=== PATIENT | male | born 1960 ===

== ENCOUNTER 2017-04-08 12:40 | Inpatient (IN) ==
[2017-04-08 15:18] LABS: Basophils % 0.2 % (0.0-0.8); Eosinophils # 0.1 10*3/uL (0.0-0.87); Eosinophils % 0.3 % (0.00-10.9); Hematocrit 24.6 VOL% (42.0-52.0); Hemoglobin 9.3 GM/DL (14.0-18.0); Immature Granulocytes % 1.8 %; Immature Granulocytes Absolute 0.32 #; Lymphocytes # 2.2 10*3/uL (1.4-4.0); Lymphocytes % 11.9 % (21.2-54.2); Mean Corpuscular HGB Conc 37.8 GM/DL (32-36); Mean Corpuscular Hemoglobin 33 PG (27-34); Mean Corpuscular Volume 86.3 FL (87-102); Mean Platelet Volume 11.6 FL (9.6-12.0); Monocytes % 10.9 % (1.7-12.7); Neutrophils # 13.7 10*3/uL (1.4-7.4); Neutrophils % 74.9 % (38.7-73.9); Platelet Count 130 T/CUMM (130-400); Red Blood Count 2.85 MC/CUMM (3.8-5.5); Red Cell Distribution Width 13.7 % (9.3-17.3); White Blood Count 18.3 T/CUMM (4-12)
[2017-04-08 15:49] LABS: Albumin 1.8 G/DL (3.4-5.0); Bilirubin,Total 5.9 MG/DL (0.2-1.0); Osmolality,Calculated 258.5 MOS/KG (273-304); Potassium 3.3 MMOL/L (3.5-5.1); Total Protein 5.3 G/DL (6.4-8.3)
--- NOTE | 2017-04-08 16:38 | Hospitalist History & Physical ---
Assessment and Plan - Time spent with patient Time spent with patient: Greater than 30 minutes (1) Diabetes Status: Chronic Assessment and plan: Accu-cheks ACHS. Sliding scale insulin per protocol. Current Visit: No (2) Hypertension Status: Chronic Assessment and plan: Continue home meds. Current Visit: No History of Present Illness Chief complaint: jaundice, cholecystitis History of present illness: Mr. Abdi is a 56 year old [place] male with a past medical history significant for hypertension and diabetes mellitus who presents to the ED as a transfer from [facility] for further evaluation of shortness of cholecystitis. Patient reports that he did have abdominal pain on arrival to the [facility] ED, however administration of pain is, the pain has resolved. Patient's lab work is negative for any acute hepatic injury. On exam , he has a negative Garcia sign, he denies abdominal pain, nausea/vomiting. He does have bilateral lower extremity edema. After discussion Dr. Roman, the patient will be admitted for further evaluation with a GI consult for possible ERCP we will also obtain a hepatic profile. Patient is a full code. His home meds have been reviewed and reconciled. Home Medications Medication Instructions Recorded Confirmed Type Aspirin EC Tab 81 mg PO DAILY 09/13/15 04/08/17 History Gabapentin Cap/Tab [Neurontin 200 mg PO BEDTIME 09/13/15 04/08/17 History Cap/Tab] Lisinopril [Prinivil] 10 mg PO DAILY 09/13/15 04/08/17 History Glimepiride 2 mg PO DAILY 07/23/16 04/08/17 History Metformin HCl [Metformin HCl ER] 1,000 mg PO BID 07/23/16 04/08/17 History Calcium (Carbonate) [Caltrate 600] 600 mg PO BID 04/08/17 04/08/17 History Cyclobenzaprine [Flexeril] 10 mg PO BID PRN 04/08/17 04/08/17 History Mineral Oil/Petrolatum,White 3.5 gm BOTH EYES BEDTIME PRN 04/08/17 04/08/17 History [Artificial Tears Eye Ointment] Moxifloxacin 0.5% Oph Soln 1 drop RIGHT EYE Q4H 04/08/17 04/08/17 History [Vigamox 0.5% Oph Soln] Propylene Glycol [Systane Balance] 1 drop BOTH EYES QID PRN 04/08/17 04/08/17 History Simvastatin [Simvastatin] 20 mg PO BEDTIME 04/08/17 04/08/17 History Allergies Allergy/AdvReac Type Severity Reaction Status Date / Time cefoperazone Allergy RASH Verified 09/13/15 10:48 Medical,Surgical,& Family Hx - Medical History Cardio: History of: Hypertension (medication) Neurology: No history of: Seizures HEENT: History of: Ear Problem (glasses) Endocrine: History of: Diabetes Mellitus (NIDDM) Musculoskeletal: History of: Back/Neck Problems (had back surgery) Hematology: History of: Blood Transfusion Reaction (3 months ago) Other: No history of: Anesthesia Reactions - Surgical History Cardiac Surgeries: Patient Denies: Cardiac Catheterization Abdominal Surgeries: Surgical HX of: Abdominal Surgery (spleenectomy, pancreatic pseudocyst), Colonoscopy, EGD Orthopedic Surgeries: Surgical HX of;: Orthopedic Surgery (back surgery, right shoulder) - Family History Family History: Reports;: Family Cancer (colon (mother)) - Social History Smoking Status: Unknown if ever smoked Frequency of Alcohol Use: None Type of Drug Use: None Marital Status: Single Lives With:: Alone Functional capacity: independent ambulation 12 point system: reviewed and no additional remarkable complaints except as stated Exam - Constitutional Vitals: Period Temp Pulse Resp BP Sys/Robbins Pulse Ox Last 24 Hr 98.2 F-98.2 F 69-81 11-20 87-111/54-73 100-100 Exam: General appearance: overweight, no acute distress - Head Head exam: Present: normocephalic, atraumatic - Eye Eye exam: Present: EOMI. Absent: conjunctival injection, nystagmus Pupils: Present: RAMONA, normal accommodation - ENT ENT exam: Present: normal exam, normal external ear exam - Neck Neck exam: Present: normal inspection. Absent: lymphadenopathy, tenderness, thyromegaly - Respiratory Respiratory exam: Present: clear to auscultation bilaterally. Absent: rales, rhonchi, wheezes - Cardiovascular Cardiovascular exam: Present: regular rate and rhythm. Absent: carotid bruit, gallop, rubs - GI/Abdominal GI/Abdominal exam: Present: normal bowel sounds. Absent: ascites, distended, mass - Extremities Exam Extremities exam: Present: normal inspection, normal capillary refill. Absent: edema - Back Exam Back exam: Absent: CVA tenderness (L), CVA tenderness (R) - Neurological Exam Neurological exam: Present: alert, oriented X3, CN II-XII intact, reflexes normal - Psychiatric Psychiatric exam: Present: normal affect, normal mood - Skin Skin exam: Present: normal color, warm, dry Results - Labs CBC & BMP: 04/08/17 15:10 04/08/17 15:10 Lab Results: I have reviewed the past 24 hour labs - Impressions In addition to assessment and plan, my impressions are as follows: 1. cholangitis vs. cholecystitis -Consult GI for possible ERCP. IV fluids -Obtain hepatitis profile
[2017-04-08] MEDS ORDERED: DEXTROSE 50% 25 GM/50 ML VIAL IV PRN (17:59)
[2017-04-08] MEDS ORDERED: ONDANSETRON 4 MG/2 ML VIAL IV PRN (17:59)
[2017-04-08] MEDS ORDERED: DOCUSATE SODIUM 100 MG CAPSULE PO PRN (17:59)
[2017-04-08] MEDS ORDERED: GLUCAGON 1 MG VIAL IM PRN (17:59)
[2017-04-08] MEDS ORDERED: LACTULOSE 20 GM/30 ML UDCUP PO PRN (17:59)
[2017-04-08] MEDS ORDERED: ACETAMINOPHEN 325 MG TABLET PO PRN (17:59)
[2017-04-08] MEDS ORDERED: CYCLOBENZAPRINE 10 MG TABLET PO PRN (18:04)
[2017-04-08] MEDS: MOXIFLOXACIN 0.5% OPH SOLN 3 ML BOTTLE RIGHT EYE SCH ×2 (19:05→22:38)
[2017-04-08 19:15] LABS: Hepatitis A Ab IgM Quant 0.07 Index; Hepatitis A Ab IgM Result Negative (Negative); Hepatitis B Core IgM Quant 0.13 Index; Hepatitis B Core IgM Result Negative (Negative); Hepatitis B Surface Ag Quant < 0.10 Index; Hepatitis B Surface Ag Result Negative (Negative); Hepatitis C Virus Ab Quant 0.16 Index; Hepatitis C Virus Ab Result Negative (Negative)
[2017-04-08] MEDS: INSULIN LISPRO 100 UNIT/ML SUBCUT SCH (22:30)
[2017-04-08] MEDS: SIMVASTATIN 20 MG TABLET PO SCH (22:38)
[2017-04-08] MEDS: GABAPENTIN 100 MG CAPSULE PO SCH (22:38)
[2017-04-09] MEDS: MOXIFLOXACIN 0.5% OPH SOLN 3 ML BOTTLE RIGHT EYE SCH ×6 (02:39→22:14)
[2017-04-09 06:35] LABS: Basophils % 0.2 % (0.0-0.8); Eosinophils # 0.1 10*3/uL (0.0-0.87); Eosinophils % 0.8 % (0.00-10.9); Hematocrit 21.5 VOL% (42.0-52.0); Immature Granulocytes % 1.4 %; Immature Granulocytes Absolute 0.18 #; Lymphocytes # 1.5 10*3/uL (1.4-4.0); Lymphocytes % 11.6 % (21.2-54.2); Mean Corpuscular HGB Conc 37.2 GM/DL (32-36); Mean Corpuscular Hemoglobin 32 PG (27-34); Mean Platelet Volume 11.8 FL (9.6-12.0); Monocytes # 1.7 10*3/uL (0.11-0.8); Monocytes % 12.9 % (1.7-12.7); Neutrophils # 9.4 10*3/uL (1.4-7.4); Neutrophils % 73.1 % (38.7-73.9); Platelet Count 131 T/CUMM (130-400); Red Cell Distribution Width 13.9 % (9.3-17.3); White Blood Count 12.9 T/CUMM (4-12)
[2017-04-09 07:07] LABS: Calcium 6.9 MG/DL (8.5-10.1)
[2017-04-09] MEDS: PANTOPRAZOLE 40 MG TABLET PO SCH (08:54)
[2017-04-09] MEDS: ASPIRIN EC 81 MG TABLET PO SCH (08:54)
[2017-04-09] MEDS: GLIMEPIRIDE 2 MG TABLET PO SCH (08:54)
[2017-04-09] MEDS: LISINOPRIL 10 MG TABLET PO SCH (08:54)
[2017-04-09] MEDS: INSULIN LISPRO 100 UNIT/ML SUBCUT SCH ×4 (08:54→21:00)
--- NOTE | 2017-04-09 09:10 | Gastrointestinal Consult Note ---
<Bianca Garcia - Last Filed: 04/09/17 09:08> Assessment and Plan (1) Jaundice Status: Acute Assessment and plan: 04/09-Onset of jaundice, unknown when, with findings of elevated LFTS, bilirubin at PCP appt. Hx of pancreatic psuedocyst, spleenectomy. 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 CT of abdomen w/o contrast findings noted as below. Obtain abdominal US today. Plan and addendum to follow by Dr Garcia. Current Visit: Yes History of Present Illness Chief complaint: Jaundice, History of present illness: Mr. Abdi is a 56 year old male who was admitted to the hospital from [facility] after reporting to the clinic for complaints of dizziness and not feeling well for several days. Pt has a history of HTN, DM, pancreatitis in the past. He has a surgical history of spleenectomy and pancreatic pseudocyst (pancreaectomy in 2007) in the past which pt is unable to recall details regarding this. He has a history of heavy alcohol use for several years however states that he has decreased his intake over the last two months with his last drink being two weeks ago. Pt states that over the last several days he has had some dizziness and generally not feeling well. He presented to the clinic and was found to be hypotensive. He had a CT of abdomen w/o contrast as well at that time and was found to have some diffuse gallbladder wall thickening and mild pericholecystic edema, suspicious for acute cholecystitis, diffuse hepatic steatosis , trace ascites, and acute colitis with mild circumferential wall thickening of the mid and distal sigmoid colon. LFTs noted with bilirubin 7.0, AST 60, and alk phos 127. Pt was then transferred to our facility after these findings. He denies any abdominal pain, nausea or vomiting associated with this. He denies any recent weight loss, fever or chills. He states that he is not aware of elevated LFTS in the past. Pt was last seen at our facility in July of last year for anemia and constipation with colonoscopy with findings at that time of diverticulosis, redundant colon. He also had an EGD with findings of acute duodenal ulcer x 4 and positive for H. pylori. He was transfused at that time. He is also noted during this visit to have a drop in his HH from admission at to 05/13 in absence of overt bleeding at this time. Home Medications Medication Instructions Recorded Confirmed Type Aspirin EC Tab 81 mg PO DAILY 09/13/15 04/08/17 History Gabapentin Cap/Tab [Neurontin 200 mg PO BEDTIME 09/13/15 04/08/17 History Cap/Tab] Lisinopril [Prinivil] 10 mg PO DAILY 09/13/15 04/08/17 History Glimepiride 2 mg PO DAILY 07/23/16 04/08/17 History Metformin HCl [Metformin HCl ER] 500 mg PO BID 07/23/16 04/08/17 History Calcium (Carbonate) [Caltrate 600] 600 mg PO BID 04/08/17 04/08/17 History Allergies Allergy/AdvReac Type Severity Reaction Status Date / Time cefoperazone Allergy RASH Verified 09/13/15 10:48 Medical,Surgical,& Family Hx - Medical History Cardio: History of: Hypertension (medication) Psychological: No history of: Anxiety Disorders, ADHD, Behavior Problems, Bipolar Disorder, Depression, Previous Suicide Attempt, Psychiatric/Substance Abuse Tx, Schizophrenia, Violent Behavior, Psychiatric Problems Neurology: No history of: Seizures HEENT: History of: Eye Problem (wears glasses , didnt bring with him) No history of: Ear Problem Endocrine: History of: Diabetes Mellitus (NIDDM) Musculoskeletal: History of: Back/Neck Problems (had back surgery) Hematology: History of: Blood Transfusion Reaction (3 months ago) Other: No history of: Anesthesia Reactions - Surgical History Cardiac Surgeries: Patient Denies: Cardiac Catheterization Abdominal Surgeries: Surgical HX of: Abdominal Surgery (spleenectomy, pancreatic pseudocyst), Colonoscopy, EGD Orthopedic Surgeries: Surgical HX of;: Orthopedic Surgery (back surgery, right shoulder) - Family History Family History: Reports;: Family Cancer (colon (mother)) - Social History Smoking Status: Unknown if ever smoked Frequency of Alcohol Use: None Type of Drug Use: None 12 point system: reviewed and no additional remarkable complaints except as stated - Constitutional Constitutional: Present: as per HPI - EENT Eyes: Present: as per HPI Ears: Present: as per HPI Nose, mouth and throat: Present: as per HPI - Cardiovascular Cardiovascular: Present: as per HPI - Respiratory Respiratory: Present: as per HPI - Gastrointestinal Gastrointestinal: Present: as per HPI - Genitourinary Genitourinary: Present: as per HPI - Musculoskeletal Musculoskeletal: Present: as per HPI - Neurological Neurological: Present: as per HPI, dizziness - Psychiatric Psychiatric: Present: as per HPI - Endocrine Endocrine: Present: as per HPI - Hematologic/Lymphatic Hematologic/Lymphatic: Present: as per HPI Exam - Constitutional Vitals: Period Temp Pulse Resp BP Sys/Robbins Pulse Ox Last 24 Hr 97.8 F-98.5 F 69-113 11-20 87-113/44-76 97-100 General appearance: normal weight, no acute distress - Head Head exam: Present: normal inspection, normocephalic - Eye Eye exam: Present: other (lids and conjunctiva unremarkable). Absent: scleral icterus - ENT ENT exam: Present: normal exam, normal oropharynx - Neck Neck exam: Present: normal inspection - Respiratory Respiratory exam: Present: clear to auscultation bilaterally. Absent: rales, rhonchi, wheezes - Cardiovascular Cardiovascular exam: Present: regular rate and rhythm. Absent: diastolic murmur , JVD, systolic murmur - GI/Abdominal GI/Abdominal exam: Present: normal bowel sounds, soft. Absent: ascites, distended, mass, organomegaly, tenderness - Extremities Exam Extremities exam: Present: normal inspection, full ROM - Back Exam Back exam: Present: normal inspection - Neurological Exam Neurological exam: Present: alert, oriented X3 - Psychiatric Psychiatric exam: Present: normal affect, normal mood - Skin Skin exam: Present: normal color, warm, dry Results - Labs CBC & BMP: 04/09/17 06:20 04/09/17 06:20 Lab Results: I have reviewed the past 24 hour labs - Diagnostic Findings Procedure: CT Abdomen and Pelvis: report reviewed by me (outside facility, no contrast) <Karlos Garcia - Last Filed: 04/09/17 17:11> History of Present Illness Chief complaint: 3030 History of present illness: Mr. Abdi is a 56 year old male Exam - Constitutional Vitals: Period Temp Pulse Resp BP Sys/Robbins Pulse Ox Last 24 Hr 97.2 F-98.7 F 70-113 12-20 86-113/44-76 18-100 Results - Labs CBC & BMP: 04/09/17 06:20 04/09/17 06:20
[2017-04-09 09:27] LABS: Albumin 1.5 G/DL (3.4-5.0); Bilirubin,Direct 3.6 MG/DL (0.0-0.20); Bilirubin,Indirect 1.4 MG/DL (0.0-1.0); Total Protein 4.6 G/DL (6.4-8.3)
--- NOTE | 2017-04-09 09:34 | Hospitalist Progress Note ---
"Assessment and Plan (1) Jaundice Status: Acute Assessment and plan: GI consulted will follow their recs, hepatitis profile sent will follow Current Visit: Yes (2) Duodenal ulcer Status: Acute Assessment and plan: hx of DU in the past , treated with anbx and PPI, will contiune PPI, will monitor H|H Current Visit: No (3) Cholecystitis Status: Acute Assessment and plan: CT abd done in another facility is C|W with cholecystitis, will contiune iv antbx repeat US of abd and will do surgical consult Current Visit: Yes (4) Diabetes Status: Chronic Assessment and plan: contiune home meds and SSI Current Visit: No Hospitalist: Subjective Interval history: clinically stable mild upper abdominal pain , still jaundiced , schdeule for US of abd today Exam - Constitutional Vitals: Period Temp Pulse Resp BP Sys/Robbins Pulse Ox Last 24 Hr 97.8 F-98.7 F 69-113 11-20 86-113/44-76 18-100 heent, pearle neck, supple. chest clear. cvs, s1 s2. abd, soft, bs+, mild RUQ tendreness no rebound supply analyst, alert orientedx3 afocal Results - Labs CBC & BMP: 04/09/17 06:20 04/09/17 06:20"
[2017-04-09] MEDS: LEVOFLOXACIN INJ 500 MG in PREMIX 1 EACH IV SCH (10:29)
[2017-04-09] MEDS: SODIUM CHLOR 0.9% KCL 40 MEQ 40 MEQ/1,000 ML BAG IV SCH ×2 (10:29→22:17)
--- NOTE | 2017-04-09 11:38 | Ultrasound Report ---
History his elevated LFTs The liver is 16.0 cm in length. There is increased echogenicity of the liver with mild attenuation of the ultrasound beam The there is a mild distention of the gallbladder with gallbladder wall thickening measuring 4 mm in tiny amount of pericholecystic fluid. There is small amount of gallbladder sludge without shadowing stones No biliary ductal dilatation is seen Patient is status post splenectomy No renal hydronephrosis seen bilaterally Visualized aorta and IVC are normal in size Pancreas obscured by bowel gas Tiny amount of ascites present Impression: 1. Pancreas is obscured 2. Fatty infiltration of the liver 3. Gallbladder sludge with mild gallbladder distention and mild nonspecific gallbladder wall thickening which can simply be related to ascites. Clinical correlation as to any question of acalculous cholecystitis requested The Ultrasound images were captured and stored. PROCEDURE INTERPRETED AT [facility] DEPARTMENT OF RADIOLOGY Final Report Signed by: Dr. Rafaela Mo
--- NOTE | 2017-04-09 13:38 | General Surgery Consult Note ---
Assessment and Plan - Time spent with patient Time spent with patient: Greater than 30 minutes (1) Hypotension Status: Acute Assessment and plan: Mr. 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 CT scan of the abdomen and pelvis done at the [facility] report reads a diffuse gallbladder wall thickening and gallbladder sludge. Ultrasound of the abdomen showing the same. Patient has elevated total bilirubin of 5 with a normal lipase. Patient is completely asymptomatic for gallbladder disease. We are requesting the films for the CT scan done at the [facility] to be loaded into [employer] for Dr. Tavares to review. If we cannot get these films will have a repeat CT scan done in the morning. Agree with GI consult. Dr. Tavares has seen and examined patient and further recommendations to follow. Current Visit: Yes (2) Total bilirubin, elevated Status: Acute Current Visit: Yes (3) Diabetes Status: Chronic Current Visit: No (4) Jaundice Status: Acute Current Visit: Yes History of Present Illness Chief complaint: Dizziness History of present illness: Mr. Abdi is a 56 year old male with history of alcohol abuse, diabetes, hypertension, neuropathy, splenectomy and partial pancreatectomy for pancreatic pseudocyst admitted by the hospitalist service on 04/08/2017 as a transfer from [facility] with dizziness and abdominal pain. According to the records from the [facility] patient was complaining of abdominal pain upon arrival the patient denies this as of now. Patient states his only complaint is of dizziness. He was found to be hypotensive upon admission is received some IV fluids. Patient denies any abdominal pain, nausea, vomiting or diarrhea. Patient is hungry and he is wanting to eat though he is n.p.o. Patient denies headache, dysphasia, chest pain, shortness of breath, and lower extremity edema. CT report from [facility] shows diffuse gallbladder wall thickening with pericholecystic edema suspicious for acute cholecystitis, diffuse hepatic steatosis, trace ascites, and acute colitis. Ultrasound done here shows gallbladder sludge with mild gallbladder distention and wall thickening. Patient did have an elevated white count of 18 but this morning is down to 12.9. His bilirubin was also greater than 6 at the [facility] and is down to 5 today with a direct bilirubin of 3.6 and indirect bilirubin of 1.4. His AST is only mildly elevated at 58 with a normal ALT and alk phos. His lipase and amylase are normal. His hepatitis panel is negative. Patient states he was a big drinker and states he has not drank in 2 weeks. Upon exam he is nontender to deep palpation in the epigastric and right upper quadrant region and he is jaundice. Patient has very poor insight into his medical problems and he is a poor historian. GI has been consulted. Dr. Tavares was consulted to evaluate abnormal gallbladder on CT scan. Home Medications Medication Instructions Recorded Confirmed Type Aspirin EC Tab 81 mg PO DAILY 09/13/15 04/08/17 History Gabapentin Cap/Tab [Neurontin 200 mg PO BEDTIME 09/13/15 04/08/17 History Cap/Tab] Lisinopril [Prinivil] 10 mg PO DAILY 09/13/15 04/08/17 History Glimepiride 2 mg PO DAILY 07/23/16 04/08/17 History Metformin HCl [Metformin HCl ER] 500 mg PO BID 07/23/16 04/08/17 History Calcium (Carbonate) [Caltrate 600] 600 mg PO BID 04/08/17 04/08/17 History Allergies Allergy/AdvReac Type Severity Reaction Status Date / Time cefoperazone Allergy RASH Verified 09/13/15 10:48 Medical,Surgical,& Family Hx - Medical History Cardio: History of: Hypertension (medication) Psychological: No history of: Anxiety Disorders, ADHD, Behavior Problems, Bipolar Disorder, Depression, Previous Suicide Attempt, Psychiatric/Substance Abuse Tx, Schizophrenia, Violent Behavior, Psychiatric Problems Neurology: No history of: Seizures HEENT: History of: Eye Problem (wears glasses , didnt bring with him) No history of: Ear Problem Endocrine: History of: Diabetes Mellitus (NIDDM) Musculoskeletal: History of: Back/Neck Problems (had back surgery) Hematology: History of: Blood Transfusion Reaction (3 months ago) Other: No history of: Anesthesia Reactions - Surgical History Cardiac Surgeries: Patient Denies: Cardiac Catheterization Abdominal Surgeries: Surgical HX of: Abdominal Surgery (spleenectomy, pancreatic pseudocyst), Colonoscopy, EGD Orthopedic Surgeries: Surgical HX of;: Orthopedic Surgery (back surgery, right shoulder) - Family History Family History: Reports;: Family Cancer (colon (mother)) - Social History Smoking Status: Unknown if ever smoked Frequency of Alcohol Use: Frequently Type of Drug Use: None Functional capacity: independent ambulation Review of systems: A complete 10 system review of systems was obtained and pertinent positives and negatives per HPI Exam - Constitutional Vitals: Period Temp Pulse Resp BP Sys/Robbins Pulse Ox Last 24 Hr 97.2 F-98.7 F 69-113 11-20 86-113/44-76 18-100 Exam: Constitutional System: No distress. No tremulousness. Head: Normocephalic, atraumatic. Ears, Nose and Throat System: No evidence of Otitis or Mastoiditis. No epistaxis or discharge, Eyes System: Pupils equal, round, and reactive. Extraocular muscles intact. Sclera icteric Neck: Supple, without adenopathy, No jugular venous distention. No thyromegaly, neck mass, or prior surgery apparent. Respiratory System: Chest clear to auscultation. Cardiovascular System: Heart with regular rate and rhythm. No murmur. GI System: Abdomen soft, nontender. Normo active bowel sounds present. Musculoskeletal System: limbs with no pedal edema. Full distal pulses. Neurological System: No discernable sensory deficit. No aphasia Psychiatric System: Conversation is rational Results - Labs CBC & BMP: 04/09/17 06:20 04/09/17 06:20 Lab Results: I have reviewed the past 24 hour labs - Diagnostic Findings Procedure: CT Abdomen and Pelvis: report reviewed by me (CT scan of the abdomen and pelvis from [facility] shows diffuse gallbladder wall thickening and mild pericholecystic edema suspicious for acute cholecystitis, diffuse hepatic steatosis, trace ascites, acute colitis), Ultrasound: report reviewed by me ( Abdominal ultrasound shows fatty infiltration of the liver, gallbladder sludge with mild gallbladder distention and gallbladder wall thickening which can be related to ascites.)
[2017-04-09] MEDS: GABAPENTIN 100 MG CAPSULE PO SCH (21:17)
[2017-04-09] MEDS: SIMVASTATIN 20 MG TABLET PO SCH (21:17)
[2017-04-10] MEDS: MOXIFLOXACIN 0.5% OPH SOLN 3 ML BOTTLE RIGHT EYE SCH ×6 (02:34→22:25)
[2017-04-10 05:23] LABS: Basophils % 0.3 % (0.0-0.8); Eosinophils # 0.2 10*3/uL (0.0-0.87); Eosinophils % 1.4 % (0.00-10.9); Hematocrit 20.1 VOL% (42.0-52.0); Hemoglobin 7.3 GM/DL (14.0-18.0); Immature Granulocytes Absolute 0.22 #; Lymphocytes # 2.1 10*3/uL (1.4-4.0); Lymphocytes % 19.7 % (21.2-54.2); Mean Corpuscular HGB Conc 36.3 GM/DL (32-36); Mean Corpuscular Hemoglobin 32 PG (27-34); Mean Corpuscular Volume 88.5 FL (87-102); Monocytes # 1.5 10*3/uL (0.11-0.8); Monocytes % 14.1 % (1.7-12.7); Neutrophils # 6.7 10*3/uL (1.4-7.4); Neutrophils % 62.5 % (38.7-73.9); Platelet Count 138 T/CUMM (130-400); Red Blood Count 2.27 MC/CUMM (3.8-5.5); Red Cell Distribution Width 14.9 % (9.3-17.3); White Blood Count 10.8 T/CUMM (4-12)
[2017-04-10 05:51] LABS: Calcium 6.7 MG/DL (8.5-10.1); Osmolality,Calculated 271.7 MOS/KG (273-304); Potassium 3.6 MMOL/L (3.5-5.1)
[2017-04-10 05:54] LABS: Albumin 1.4 G/DL (3.4-5.0); Bilirubin,Total 4.5 MG/DL (0.2-1.0); Calcium 6.6 MG/DL (8.5-10.1); Osmolality,Calculated 269.8 MOS/KG (273-304); Potassium 3.8 MMOL/L (3.5-5.1); Total Protein 4.4 G/DL (6.4-8.3)
[2017-04-10 06:00] LABS: Eosinophils 1 % (0-10); Hypochromasia 1+; Lymphocytes 16 % (20-55); Segmented Neutrophils 72 % (50-85); Total Cells Counted 100
[2017-04-10 06:01] LABS: Acanthocytes Few; Platelet Estimate Adequate
[2017-04-10] MEDS: INSULIN LISPRO 100 UNIT/ML SUBCUT SCH ×4 (07:54→21:24)
[2017-04-10] MEDS: GLIMEPIRIDE 2 MG TABLET PO SCH (08:17)
[2017-04-10] MEDS: ASPIRIN EC 81 MG TABLET PO SCH (08:17)
[2017-04-10] MEDS: LISINOPRIL 10 MG TABLET PO SCH (08:18)
[2017-04-10] MEDS: PANTOPRAZOLE 40 MG TABLET PO SCH (08:18)
[2017-04-10] MEDS: LEVOFLOXACIN INJ 500 MG in PREMIX 1 EACH IV SCH (09:19)
--- NOTE | 2017-04-10 09:25 | EKG Report ---
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
[2017-04-10] MEDS ORDERED: SODIUM CHLORIDE 0.9% 250 ML IV PRN (09:44)
[2017-04-10 10:54] LABS: INR 3.5
[2017-04-10] MEDS ORDERED: PHYTONADIONE 10 MG/1 ML AMP SUBCUT ONE (12:08)
--- NOTE | 2017-04-10 12:08 | General Surgery Progress Note ---
Assessment and Plan (1) Jaundice Status: Acute Assessment and plan: Impression: Jaundice, probably related to cirrhosis and underlying liver dysfunction Plan: I reviewed the outside CT images and report. Gallbladder wall does not appear very thickened. The pericholecystic fluid is likely ascites. I suspect this is all related to underlying liver disease. Elevated INR today supports some intrinsic dysfunction of his liver. His abdomen is completely benign on exam. No plans for any surgical intervention at this time. Please call if needed. I discussed the case with Dr. Garcia. Current Visit: Yes Subjective Patient reports: Present: no new complaints Narrative: Patient continues to deny any abdominal pain Exam - Constitutional Vitals: Period Temp Pulse Resp BP Sys/Robbins Pulse Ox Last 24 Hr 97.9 F-98.4 F 73-108 12-20 93-108/57-65 95-100 General appearance: no acute distress - Head Head exam: Present: normocephalic - Neck Neck exam: Present: normal inspection - Respiratory Respiratory exam: Present: clear to auscultation bilaterally - Cardiovascular Cardiovascular exam: Present: RRR - GI/Abdominal GI/Abdominal exam: Present: soft (Nontender nondistended) - Back Exam Back exam: Present: normal inspection - Neurological Exam Neurological exam: Present: alert, oriented X3 Speech: Present: normal - Skin Skin exam: Present: normal color Results - Labs CBC & BMP: 04/10/17 04:50 04/10/17 04:50 Lab Results: I have reviewed the past 24 hour labs
--- NOTE | 2017-04-10 12:15 | Gastrointestinal Progress Note ---
<Bianca Garcia - Last Filed: 04/10/17 12:13> Assessment and Plan (1) Jaundice Status: Acute Assessment and plan: 04/10-ERCP rescheduled to tomorrow due to elevated INR. H&H noted to be down today. Transfuse 2 units of packed red blood cells. Give vitamin K 5 mg subcu and repeat lab work in the morning. Plan an addendum to follow Dr. Garcia 04/09-Onset of jaundice, unknown when, with findings of elevated LFTS, bilirubin at PCP appt. Hx of pancreatic psuedocyst, spleenectomy. 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 CT of abdomen w/o contrast findings noted as below. Obtain abdominal US today. Plan and addendum to follow by Dr Garcia. Current Visit: Yes Gastroenterology - PN: Subj Interval history: CC: Jaundice, anemia Patient is seen, awake and alert with family at bedside. He was scheduled for ERCP this morning however his INR was noted to be elevated today at 3.5. ERCP is to be postponed to tomorrow pending repeat lab work if INR is down at 1.8 or below. H&H this morning noted to be down at 04/11. 2 units of packed red blood cells are transfusion currently. Will give patient 5 mg of vitamin K and reevaluate tomorrow. Abdomen soft, nontender. ROS: Denies shortness of breath or chest pain Exam (Progress Note) - Constitutional Vitals: Period Temp Pulse Resp BP Sys/Robbins Pulse Ox Last 24 Hr 97.9 F-98.4 F 73-108 12-20 93-108/57-68 95-100 General appearance: normal weight, no acute distress - Head Head exam: Present: normal inspection, normocephalic - Eye Eye exam: Present: other (Lids and conjunctive are unremarkable). Absent: scleral icterus - ENT ENT exam: Present: normal exam, normal oropharynx - Neck Neck exam: Present: normal inspection - Respiratory Respiratory exam: Present: clear to auscultation bilaterally. Absent: rales, rhonchi, wheezes - Cardiovascular Cardiovascular exam: Present: regular rate and rhythm. Absent: diastolic murmur , JVD, systolic murmur - GI/Abdominal GI/Abdominal exam: Present: normal bowel sounds, soft. Absent: ascites, distended, mass, organomegaly, tenderness - Extremities Exam Extremities exam: Present: normal inspection, full ROM - Back Exam Back exam: Present: normal inspection - Neurological Exam Neurological exam: Present: alert, oriented X3 - Psychiatric Psychiatric exam: Present: normal affect, normal mood - Skin Skin exam: Present: normal color, warm, dry Results - Labs CBC & BMP: 04/10/17 04:50 04/10/17 04:50 Lab Results: I have reviewed the past 24 hour labs <Karlos Garcia - Last Filed: 04/10/17 17:29> Exam (Progress Note) - Constitutional Vitals: Period Temp Pulse Resp BP Sys/Robbins Pulse Ox Last 24 Hr 97.9 F-98.4 F 73-108 16-20 93-117/57-70 95-100 Results - Labs CBC & BMP: 04/10/17 04:50 04/10/17 04:50
--- NOTE | 2017-04-10 14:11 | Physician Query Form ---
CLICK EDIT DOCUMENT TO SELECT QUERY ANSWER --> OK --> SIGN Ashwini Dallas RN Clinical [employer] W) [phone] (f) [phone] [email or web address] PROVIDERS: Make your selection(s) from the choices in EACH section by typing an "x" and enter comments in the comment section. Please use your independent medical judgment in providing your response. This request does not imply that any particular answer is desired or expected. CLINICAL INDICATORS: (Providers should not edit this section) Based on documentation of serum creatinine of 1.6 down to 1.10. GFR from 58 up to 90. Had a ct scan of abdomen and pelvis at [facility]. Treated with NS with KCL infusion. Clarify which of the following most accurately represents the patient's renal status: (x ) Acute kidney injury (non-traumatic) ( ) Acute renal failure ( ) Acute renal failure with underlying Chronic Kidney Disease (CKD) - please provide stage below ( ) Acute renal failure with pathological renal lesion ( ) Acute renal failure with necrosis ( ) tubular ( ) medullary ( ) cortical ( ) CKD - please provide stage below ( ) End Stage Renal Disease ( ) Acute interstitial nephritis ( ) Hepatorenal syndrome ( ) Other, please specify: ( ) Clinically unable to determine Chronic Kidney Disease Stages Source: National Kidney Disease Foundation ( ) Stage I (eGFR > or = 90) ( ) Stage II (eGFR 60 - 89) ( ) Stage III (eGFR 30 - 59) ( ) Stage IV (eGFR 15 - 29) ( ) Stage V (eGFR < 15 or dialysis) COMMENTS: PLEASE ALSO DOCUMENT RESPONSE IN PROGRESS NOTES AND/OR DISCHARGE SUMMARY Use of terms such as suspected, likely, or probable (associated with a specific diagnosis that is being evaluated, monitored, or treated as if it exists) are acceptable and can be restated in the discharge summary if not ruled out. MTDD
--- NOTE | 2017-04-10 16:33 | Hospitalist Progress Note ---
Assessment and Plan (1) Diabetes Status: Chronic Current Visit: No (2) Duodenal ulcer Status: Acute Current Visit: No (3) Jaundice Status: Acute Current Visit: Yes (4) Cholecystitis Status: Acute Current Visit: Yes Hospitalist: Subjective Interval history: No acute events overnight. Patient denies abdominal pain. Plan is for ERCP today. Exam - Constitutional Vitals: Period Temp Pulse Resp BP Sys/Robbins Pulse Ox Last 24 Hr 97.9 F-98.4 F 73-108 16-20 93-108/57-70 95-100 General appearance: over weight - Head Head exam: Present: normocephalic, atraumatic - Eye Eye exam: Present: EOMI Pupils: Present: RAMONA - ENT ENT exam: Present: normal exam - Neck Neck exam: Present: normal inspection - Respiratory Respiratory exam: Present: clear to auscultation bilaterally - Cardiovascular Cardiovascular exam: Present: regular rate and rhythm - GI/Abdominal GI/Abdominal exam: Present: normal bowel sounds, soft. Absent: tenderness, rebound - Extremities Exam Extremities exam: Present: normal inspection - Back Exam Back exam: Present: normal inspection - Neurological Exam Neurological exam: Present: alert, oriented X3 - Psychiatric Psychiatric exam: Present: normal affect, normal mood - Skin Skin exam: Present: warm, intact Results - Labs CBC & BMP: 04/10/17 04:50 04/10/17 04:50
[2017-04-10 17:47] LABS: Hematocrit 32.1 VOL% (42.0-52.0)
[2017-04-10 17:48] LABS: Hemoglobin 11.3 GM/DL (14.0-18.0)
[2017-04-10] MEDS: SODIUM CHLOR 0.9% KCL 40 MEQ 40 MEQ/1,000 ML BAG IV SCH (21:10)
[2017-04-10] MEDS: GABAPENTIN 100 MG CAPSULE PO SCH (21:11)
[2017-04-10] MEDS: SIMVASTATIN 20 MG TABLET PO SCH (21:12)
[2017-04-11] MEDS: MOXIFLOXACIN 0.5% OPH SOLN 3 ML BOTTLE RIGHT EYE SCH ×6 (02:50→21:31)
[2017-04-11 06:57] LABS: Basophils # 0.1 10*3/uL (0.0-0.2); Basophils % 0.4 % (0.0-0.8); Eosinophils # 0.1 10*3/uL (0.0-0.87); Eosinophils % 0.7 % (0.00-10.9); Hematocrit 31.1 VOL% (42.0-52.0); Hemoglobin 11.4 GM/DL (14.0-18.0); Immature Granulocytes % 3.9 %; Lymphocytes # 1.9 10*3/uL (1.4-4.0); Lymphocytes % 12.6 % (21.2-54.2); Mean Corpuscular HGB Conc 36.7 GM/DL (32-36); Mean Corpuscular Hemoglobin 32 PG (27-34); Mean Corpuscular Volume 88.4 FL (87-102); Mean Platelet Volume 11.7 FL (9.6-12.0); Monocytes # 2.7 10*3/uL (0.11-0.8); Monocytes % 17.7 % (1.7-12.7); Neutrophils # 9.8 10*3/uL (1.4-7.4); Neutrophils % 64.7 % (38.7-73.9); Platelet Count 161 T/CUMM (130-400); Red Blood Count 3.52 MC/CUMM (3.8-5.5); Red Cell Distribution Width 15.5 % (9.3-17.3); White Blood Count 15.2 T/CUMM (4-12)
[2017-04-11 07:10] LABS: INR 1.9
[2017-04-11 07:12] LABS: PT Patient Result 21.3 SECS
[2017-04-11 07:23] LABS: Band Neutrophils 2 % (0-10); Eosinophils 1 % (0-10); Giant Platelets Few; Hypochromasia 1+; Lymphocytes 8 % (20-55); Platelet Estimate Normal; Segmented Neutrophils 80 % (50-85); Total Cells Counted 100
[2017-04-11 07:24] LABS: Calcium 7.3 MG/DL (8.5-10.1); Potassium 4.5 MMOL/L (3.5-5.1)
[2017-04-11] MEDS: INSULIN LISPRO 100 UNIT/ML SUBCUT SCH ×4 (07:43→20:12)
[2017-04-11] MEDS: ASPIRIN EC 81 MG TABLET PO SCH (08:18)
[2017-04-11] MEDS: GLIMEPIRIDE 2 MG TABLET PO SCH (08:18)
[2017-04-11] MEDS: LISINOPRIL 10 MG TABLET PO SCH (08:18)
[2017-04-11] MEDS: PANTOPRAZOLE 40 MG TABLET PO SCH (08:18)
[2017-04-11] MEDS: LEVOFLOXACIN INJ 500 MG in PREMIX 1 EACH IV SCH (08:30)
[2017-04-11] MEDS ORDERED: SUCCINYLCHOLINE 200 MG/10 ML VIAL ONE (10:50)
[2017-04-11] MEDS ORDERED: LIDOCAINE 2% 5 ML VIAL ONE (10:50)
[2017-04-11] MEDS ORDERED: ROCURONIUM 100 MG/10 ML VIAL IV ONE (10:50)
[2017-04-11] MEDS ORDERED: PROPOFOL 200 MG/20 ML VIAL IV ONE (10:50)
--- NOTE | 2017-04-11 11:10 | History and Physical Update ---
History and Physical Update - Physical Exam Mental Status: alert and oriented Heart: regular rate and rhythm Lung: clear to auscultation Abdomen: within normal limits Vitals: within normal limits
--- NOTE | 2017-04-11 11:12 | Operative Note ---
Date of procedure: 04/11/17 Pre-op diagnosis: Jaundice with biliary sludge Procedure: Endoscopic retrograde cholangiopancreatography 56-year-old male with jaundice sludge on ultrasound now for ERCP to further evaluate. Informed symptoms obtained the patient He was sedated with general anesthesia. Patient was placed prone position. The Olympus flexible duodenum scope was inserted blindly into the proximal esophagus. Findings esophagus no varices were seen stomach normal duodenum normal ampulla normal. A sphincterotome was utilized and a cholangiogram was obtained revealing no evidence of biliary ductal dilatation no filling defects were seen in the common bile duct common hepatic duct or intrahepatic ductal radicles. Cystic duct was patent no clear stones were seen in the gallbladder. We were unsuccessful in cannulating the pancreatic duct. The procedure terminated placed our procedure well his discharge recovery in good condition. Postop diagnosis: 1. Normal ERCP with no evidence of obstructive process to cause his jaundice. This likely represents ongoing hepatocellular injury from alcoholic hepatitis. Will proceed with liver biopsy in a.m. with interventional radiology to further evaluate. Anesthesia: MAC Surgeon / Physician: Karlos Garcia Estimated blood loss: none Specimens: none sent Condition: stable Disposition: post procedure unit Results - Labs CBC & BMP: 04/11/17 06:21 04/11/17 06:21 Discharge Plan - Discharge Medications No Action Lisinopril [Prinivil] 10 mg PO DAILY Gabapentin Cap/Tab [Neurontin Cap/Tab] 200 mg PO BEDTIME Aspirin EC Tab 81 mg PO DAILY Glimepiride 2 mg PO DAILY Metformin HCl [Metformin HCl ER] 500 mg PO BID Calcium (Carbonate) [Caltrate 600] 600 mg PO BID - Follow Up or Referral - Forms/Instructions
[2017-04-11] MEDS ORDERED: PHYTONADIONE 10 MG/1 ML AMP SUBCUT ONE (11:13)
--- NOTE | 2017-04-11 11:55 | Anesthesia Post-Op ---
Anesthesia Post OP - Post Ansesthetic Evaluation Patient seen in post op: Yes Resp: within normal limits CV: within normal limits Mental: within normal limits Temp: within normal limits Qmls-Lp-Dhenbrxkg: within normal limits Nausea and Vomiting: within normal limits Pain: within normal limits
[2017-04-11] MEDS ORDERED: KETAMINE 500 MG/10 ML VIAL ONE (12:16)
[2017-04-11] MEDS ORDERED: MIDAZOLAM 2 MG/2 ML VIAL ONE (12:17)
--- NOTE | 2017-04-11 12:32 | Fluoroscopy Report ---
FL ERCP Clinical Information: ERCP intraoperative fluoroscopy ^increased LFTs Total fluoroscopy time: 1 min 2 sec fluoro Operating physician: Jose Comparison: None Findings: ERCP images demonstrate endoscope within the stomach/duodenum and contrast opacification of the common bile duct, intrahepatic bile ducts and a widely patent cystic duct with contrast noted in the gallbladder. There are no filling defects identified. Images were evaluated and deemed appropriate by the operating physician at the time of the procedure. Impression: Intraoperative fluoroscopy as detailed above. PROCEDURE INTERPRETED AT [facility] DEPARTMENT OF RADIOLOGY Final Report Signed by: Lucas Aranda
--- NOTE | 2017-04-11 16:31 | Hospitalist Progress Note ---
Assessment and Plan (1) Jaundice due to hepatitis Status: Acute Assessment and plan: There is no obstructive pathology found on MRCP. Current Visit: Yes (2) Leukocytosis Status: Acute Assessment and plan: Possible occult infection patient have CT scan of the abdomen and pelvis Current Visit: Yes (3) Alcoholism Status: Acute Assessment and plan: Patient counseled regarding abstaining from alcohol overuse. Will talk to him again tomorrow. Current Visit: Yes Hospitalist: Subjective Interval history: Patient has been seen interviewed and examined and chart has been reviewed. Admitted to the hospital with painless jaundice. The gentleman has just come back from ERCP this afternoon. They see no obstructive pathology in the bile duct of the head of the pancreas. The suspicion at this point that he is jaundice is secondary to damage of the liver due to his overuse of alcohol. Talk to him but he is a half way on the sedation or talk to him again tomorrow. His [id number] is at the bedside. My emphasis today was that he needs to find a way of getting off alcohol. He sees nodding his head is a talk to him. Exam - Constitutional Vitals: Period Temp Pulse Resp BP Sys/Robbins Pulse Ox Last 24 Hr 96.7 F-98.5 F 70-106 16-20 100-124/60-075 94-100 General appearance: over weight - Head Head exam: Present: normocephalic, atraumatic, other (Jaundice of the eyes and skin noted) - Eye Eye exam: Present: EOMI, other (Electrolytes) Pupils: Present: RAMONA - Respiratory Respiratory exam: Present: clear to auscultation bilaterally - Cardiovascular Cardiovascular exam: Present: regular rate and rhythm - GI/Abdominal GI/Abdominal exam: Present: normal bowel sounds, soft - Extremities Exam Extremities exam: Present: full ROM - Neurological Exam Neurological exam: Present: alert, oriented X3, CN II-XII intact, other ( Slightly sedated) - Skin Skin exam: Present: warm, dry, other (Jaundice) Results - Labs CBC & BMP: 04/11/17 06:21 04/11/17 06:21 Lab Results: I have reviewed the past 24 hour labs (CMP and magnesium in the morning and CBC; I noted a waxing and waning white count I am afraid it may be an infection that is causing this problem)
[2017-04-11] MEDS: SODIUM CHLOR 0.9% KCL 40 MEQ 40 MEQ/1,000 ML BAG IV SCH (16:45)
--- NOTE | 2017-04-11 17:19 | Inventional Radiology Consult ---
Assessment and Plan - Time spent with patient Time spent with patient: Less than 30 minutes (1) Jaundice due to hepatitis Problem details: ECRP negative - no obstruction Status: Acute Assessment and plan: will get biopsy for histo evaluation of liver disease Current Visit: Yes IR Consult - Data of Consult Patient: new to practice Consult date: 04/11/17 Requesting Physician: Karlos Garcia - Consult Narrative Reason for consult: elevated bilirubin and normal ERCP History of present illness: Jin is a 56 year old M Admitted with jaundice. ERCP was negative. Liver biopsy is requested for elevated bilirubin. Long history of alcohol abuse. - Home Medications and Allergies Home Medications: Home Medications Medication Instructions Recorded Confirmed Type Aspirin EC Tab 81 mg PO DAILY 09/13/15 04/08/17 History Gabapentin Cap/Tab [Neurontin 200 mg PO BEDTIME 09/13/15 04/08/17 History Cap/Tab] Lisinopril [Prinivil] 10 mg PO DAILY 09/13/15 04/08/17 History Glimepiride 2 mg PO DAILY 07/23/16 04/08/17 History Metformin HCl [Metformin HCl ER] 500 mg PO BID 07/23/16 04/08/17 History Calcium (Carbonate) [Caltrate 600] 600 mg PO BID 04/08/17 04/08/17 History Allergies/Adverse Reactions: Allergies Allergy/AdvReac Type Severity Reaction Status Date / Time cefoperazone Allergy RASH Verified 09/13/15 10:48 12 point system: reviewed and no additional remarkable complaints except as stated Medical,Surgical,& Family Hx - Medical History Cardio: History of: Hypertension (medication) Psychological: No history of: Anxiety Disorders, ADHD, Behavior Problems, Bipolar Disorder, Depression, Previous Suicide Attempt, Psychiatric/Substance Abuse Tx, Schizophrenia, Violent Behavior, Psychiatric Problems Neurology: No history of: Seizures HEENT: History of: Eye Problem (wears glasses , didnt bring with him) No history of: Ear Problem Endocrine: History of: Diabetes Mellitus (NIDDM) Musculoskeletal: History of: Back/Neck Problems (had back surgery) Hematology: History of: Blood Transfusion Reaction (3 months ago) Other: No history of: Anesthesia Reactions - Surgical History Cardiac Surgeries: Patient Denies: Cardiac Catheterization Abdominal Surgeries: Surgical HX of: Abdominal Surgery (spleenectomy, pancreatic pseudocyst), Colonoscopy, EGD Orthopedic Surgeries: Surgical HX of;: Orthopedic Surgery (back surgery, right shoulder) - Family History Family History: Reports;: Family Cancer (colon (mother)) - Social History Smoking Status: Current every day smoker Frequency of Alcohol Use: Frequently Type of Drug Use: None Exam - Labs CBC & BMP: 04/11/17 06:21 04/11/17 06:21 Lab Results: I have reviewed the past 24 hour labs Labs: INR 1.9 04/11/17 06:21 Image Studies: ERCP and u/s reviewed - Constitutional Vitals: Period Temp Pulse Resp BP Sys/Robbins Pulse Ox Last 24 Hr 96.7 F-98.5 F 70-106 16-20 100-124/60-075 94-100 General appearance: over weight - Eye Eye exam: Present: EOMI, scleral icterus - Respiratory Respiratory exam: Present: clear to auscultation bilaterally - Cardiovascular Cardiovascular exam: Present: regular rate and rhythm - GI/Abdominal GI/Abdominal exam: Present: soft, other (protuberant abdomen - no fluid wave). Absent: guarding, tenderness, rebound - Neurological Exam Neurological exam: Present: alert, oriented X3 - Psychiatric Psychiatric exam: Present: normal affect, normal mood - Skin Skin exam: Present: normal color, dry
--- NOTE | 2017-04-11 19:24 | CT Report ---
CT of the abdomen and pelvis with intravenous and oral contrast. Indication: Painless jaundice. Leukocytosis. Comparison: Previous CT of the abdomen and pelvis at [facility], dated April 08, 2017. The patient had an ERCP earlier today. The heart is normal in size. There is atelectasis present at the left lung base. There is a moderate left pleural effusion. There is severe fatty infiltration of the liver. There is contrast material within the gallbladder, probably from the earlier ERCP. The liver length is 22 cm. There is no intrahepatic biliary ductal dilatation. No focal liver masses can be seen. The borders of the liver are smooth. The spleen has been removed. The pancreas is very atrophic. It contains calcifications. The pancreatic duct is not dilated. There is no adrenal enlargement. The kidneys are normal in size, location, and contour. They excrete normally. The urinary bladder presents a normal appearance. The gastric contour is normal. The loops of small intestine are not dilated. There is some distal small intestinal wall thickening. Contrast material does not meet the colon during the time of the exam. The appendix presents a normal appearance. There is no evidence of colonic obstruction. There is mild uniform colonic wall thickening. The urinary bladder presents a normal appearance. The prostate gland is not enlarged. There are multiple ventral abdominal wall hernias which contain only fat. Ascites is present, moderate in amount, all along the paracolic gutter areas and within the pelvis. In the right lower quadrant, there is a rim calcified fatty area which probably represents fat necrosis. No free air is seen. The abdominal aorta is of normal caliber with moderate plaque in its wall. Degenerative changes are noted within the spinal column. Impression: 1. Basilar atelectasis. 2. Small pleural effusion. 3. Moderate ascites. 4. Enlarged severely fatty liver. 5. Contrast material from the earlier ERCP within the gallbladder and extrahepatic ducts, not dilated. 6. Findings of chronic pancreatitis, with calcifications present and very little pancreatic tissue. 7. Status post splenectomy. 8. Distal loops of small intestine demonstrate mild uniform wall thickening. The colon demonstrates mild uniform wall thickening. This could be due to enteritis or could be secondary to the ascites. 9. Within the right lower quadrant, there is a rounded area of calcification with fat centrally which probably represents an area of fat necrosis. 10. Multiple ventral abdominal wall hernias containing only fat. The CT exam was performed using one or more of the following dose reduction techniques: Automated exposure control, adjustment of the mA and/or kV according to patient size, or use of iterative reconstruction technique. PROCEDURE INTERPRETED AT [facility] DEPARTMENT OF RADIOLOGY Final Report Signed by: Dr. Rosalind Mo
[2017-04-11] MEDS: SIMVASTATIN 20 MG TABLET PO SCH (20:08)
[2017-04-11] MEDS: GABAPENTIN 100 MG CAPSULE PO SCH (20:08)
[2017-04-12] MEDS: MOXIFLOXACIN 0.5% OPH SOLN 3 ML BOTTLE RIGHT EYE SCH ×7 (01:42→21:31)
[2017-04-12 06:09] LABS: Basophils # 0.1 10*3/uL (0.0-0.2); Basophils % 0.3 % (0.0-0.8); Eosinophils # 0.1 10*3/uL (0.0-0.87); Eosinophils % 0.7 % (0.00-10.9); Hematocrit 31.5 VOL% (42.0-52.0); Immature Granulocytes % 2.5 %; Immature Granulocytes Absolute 0.45 #; Lymphocytes # 3.4 10*3/uL (1.4-4.0); Lymphocytes % 19.2 % (21.2-54.2); Mean Corpuscular HGB Conc 34.9 GM/DL (32-36); Mean Corpuscular Hemoglobin 31 PG (27-34); Mean Corpuscular Volume 89.7 FL (87-102); Mean Platelet Volume 11.7 FL (9.6-12.0); Monocytes # 2.4 10*3/uL (0.11-0.8); Monocytes % 13.8 % (1.7-12.7); Neutrophils # 11.2 10*3/uL (1.4-7.4); Neutrophils % 63.5 % (38.7-73.9); Platelet Count 161 T/CUMM (130-400); Red Blood Count 3.51 MC/CUMM (3.8-5.5); Red Cell Distribution Width 15.7 % (9.3-17.3); White Blood Count 17.7 T/CUMM (4-12)
[2017-04-12] MEDS: SODIUM CHLOR 0.9% KCL 40 MEQ 40 MEQ/1,000 ML BAG IV SCH (06:31)
[2017-04-12 06:42] LABS: Albumin 1.5 G/DL (3.4-5.0); Bilirubin,Total 11.5 MG/DL (0.2-1.0); Calcium 7.4 MG/DL (8.5-10.1); Magnesium 1.2 MG/DL (1.8-2.4); Osmolality,Calculated 270.7 MOS/KG (273-304); Potassium 4.7 MMOL/L (3.5-5.1)
[2017-04-12] MEDS ORDERED: DIAZEPAM 5 MG TABLET PO ONE (08:33)
--- NOTE | 2017-04-12 08:51 | Gastrointestinal Progress Note ---
<Bianca Garcia - Last Filed: 04/12/17 08:48> Assessment and Plan (1) Jaundice Status: Acute Assessment and plan: 04/12-ERCP results noted. Patient for liver biopsy later today. Elevation in bilirubin 4.5-11.5 today. Afebrile WBCs noted 17,000. Plan an addendum to follow Dr. Garcia. 04/10-ERCP rescheduled to tomorrow due to elevated INR. H&H noted to be down today. Transfuse 2 units of packed red blood cells. Give vitamin K 5 mg subcu and repeat lab work in the morning. Plan an addendum to follow Dr. Garcia 04/09-Onset of jaundice, unknown when, with findings of elevated LFTS, bilirubin at PCP appt. Hx of pancreatic psuedocyst, spleenectomy. Hx of half-way heavy alcohol use. CT of abdomen w/o contrast findings noted as below. Obtain abdominal US today. Plan and addendum to follow by Dr Garcia. Current Visit: Yes Gastroenterology - PN: Subj Interval history: CC: Jaundice Patient is seen, awake and alert however states he is not feeling well today. He is noted to be somewhat lethargic but he is oriented. ERCP on yesterday noted to show no evidence of obstructive process. Dr. Aranda has consulted with patient and he is for liver biopsy today. Patient is noted to have an increase in his bilirubin from 4.5-11.5 today. Patient states he is having some mild abdominal discomfort this morning. Denies any nausea or vomiting. WBCs mildly elevated as well at 17,000. Abdomen soft, nontender. ROS: Denies shortness breath or chest pain Exam (Progress Note) - Constitutional Vitals: Period Temp Pulse Resp BP Sys/Robbins Pulse Ox Last 24 Hr 96.7 F-98.1 F 70-106 16-19 93-124/61-075 94-100 General appearance: normal weight, no acute distress - Head Head exam: Present: normal inspection, normocephalic - Eye Eye exam: Present: scleral icterus, other (Lids and conjunctivae are unremarkable) - ENT ENT exam: Present: normal exam - Neck Neck exam: Present: normal inspection - Respiratory Respiratory exam: Present: clear to auscultation bilaterally. Absent: rales, rhonchi, wheezes - Cardiovascular Cardiovascular exam: Present: regular rate and rhythm. Absent: diastolic murmur , JVD, systolic murmur - GI/Abdominal GI/Abdominal exam: Present: normal bowel sounds, tenderness (Mild), soft. Absent: ascites, distended, mass, organomegaly - Extremities Exam Extremities exam: Present: normal inspection, full ROM - Back Exam Back exam: Present: normal inspection - Neurological Exam Neurological exam: Present: alert, oriented X3 - Psychiatric Psychiatric exam: Present: normal affect, normal mood - Skin Skin exam: Present: normal color, warm, dry Results - Labs CBC & BMP: 04/12/17 04:45 04/12/17 04:45 Lab Results: I have reviewed the past 24 hour labs <Karlos Garcia - Last Filed: 04/12/17 10:10> Exam (Progress Note) - Constitutional Vitals: Period Temp Pulse Resp BP Sys/Robbins Pulse Ox Last 24 Hr 96.7 F-98.1 F 70-106 16-19 93-124/61-83 94-100 Results - Labs CBC & BMP: 04/12/17 04:45 04/12/17 04:45
[2017-04-12] MEDS: INSULIN LISPRO 100 UNIT/ML SUBCUT SCH ×4 (09:34→20:18)
[2017-04-12] MEDS: ASPIRIN EC 81 MG TABLET PO SCH (09:34)
[2017-04-12] MEDS: GLIMEPIRIDE 2 MG TABLET PO SCH (09:34)
[2017-04-12] MEDS: LISINOPRIL 10 MG TABLET PO SCH (09:34)
[2017-04-12] MEDS: PANTOPRAZOLE 40 MG TABLET PO SCH (09:35)
[2017-04-12] MEDS: LEVOFLOXACIN INJ 500 MG in PREMIX 1 EACH IV SCH (10:27)
--- NOTE | 2017-04-12 11:26 | Post Interventional Procedure ---
Pre-op diagnosis: jaundice Post-op diagnosis: same Procedure: liver biopsy Contrast: none Flouroscopy: none Radiologist: Lucas Aranda Anesthesia: local Specimens: other (three 20 ga core samples sent) Estimated blood loss: none Complications: none Condition: stable Description/Findings: right lobe random liver biopsy done with u/s guidance and patient tolerated well Assessment and Plan - Time spent with patient Time spent with patient: Less than 30 minutes (1) Jaundice due to hepatitis Problem details: ECRP negative - no obstruction Status: Acute Assessment and plan: will get biopsy for histo evaluation of liver disease 04/12: biopsy done - noted on u/s at the time of biopsy was GB dilatation and wall thickening and sludge - increased from prior u/s and maybe due to interval ERCP and transient biliary dyskinesia or spasm - would suggest continued close follow up and repeat u/s in 24-48 if bili continues to trend up Current Visit: Yes
--- NOTE | 2017-04-12 11:32 | Ultrasound Report ---
Ultrasound-guided liver biopsy Clinical history: History of alcoholic liver disease, needs staging. Physician: Dr. Aranda. Procedure: Informed consent was obtained prior to the procedure. A formal timeout was performed. Maximum sterile barrier technique was used. The right lobe of the liver was examined with ultrasound and no focal hepatic lesions are identified. Therefore, a random biopsy was performed. The right upper quadrant was prepped and draped in a sterile fashion. Under sonographic guidance, a coaxial guide needle was advanced into the right lobe of the liver. A captured sonographic image documents the needle position within the liver. Multiple 20-gauge core biopsies were then obtained. The needle was removed and final ultrasound images showed no significant hematoma. Scant hemorrhage is noted along the biopsy tract within the liver parenchyma, as expected. Minimal perihepatic ascites is also noted in the procedure. There is moderate distention of the gallbladder with internal sludge and wall thickening, which appears slightly increased from the prior diagnostic ultrasound dated 04/09/2017. The patient tolerated the procedure well and left the procedure area in stable condition. Complications: None. Estimated blood loss: Less than 5 mL. Impression: Technically successful ultrasound guided random liver biopsy. Apparent interval increase in gallbladder distention/wall thickening with sludge noted. PROCEDURE INTERPRETED AT [facility] DEPARTMENT OF RADIOLOGY Final Report Signed by: Lucas Aranda
--- NOTE | 2017-04-12 14:57 | Hospitalist Progress Note ---
Assessment and Plan (1) Diabetes Status: Chronic Assessment and plan: SSI Current Visit: No (2) Duodenal ulcer Status: Acute Current Visit: No (3) Jaundice Status: Acute Current Visit: Yes (4) Total bilirubin, elevated Status: Acute Assessment and plan: Increased to 12 from 4 since admission GI assisting Liver biopsy today Current Visit: Yes (5) Jaundice due to hepatitis Problem details: ECRP negative - no obstruction Status: Acute Assessment and plan: ERCP with no obstruction Liver biopsy today Current Visit: Yes (6) Leukocytosis Status: Acute Assessment and plan: No overt signs of infection CT yesterday also without answer Will get UA Current Visit: Yes (7) Alcoholism Status: Acute Current Visit: Yes Hospitalist: Subjective Interval history: No acute events overnight. Patient denies pain but says that his stomach is "uncomfortable." Liver biopsy today. He is asking about discharge. His leukocytosis is worsening and a jump in his bilirubin. Exam - Constitutional Vitals: Period Temp Pulse Resp BP Sys/Robbins Pulse Ox Last 24 Hr 97.3 F-98.1 F 71-100 16-18 93-123/61-83 94-99 General appearance: over weight, other (jaundice) - Head Head exam: Present: normocephalic, atraumatic - Eye Eye exam: Present: EOMI Pupils: Present: RAMONA - ENT ENT exam: Present: normal exam - Neck Neck exam: Present: normal inspection - Respiratory Respiratory exam: Present: clear to auscultation bilaterally. Absent: rhonchi, wheezes - Cardiovascular Cardiovascular exam: Present: regular rate and rhythm - GI/Abdominal GI/Abdominal exam: Present: normal bowel sounds, soft. Absent: tenderness, rebound - Extremities Exam Extremities exam: Present: normal inspection - Back Exam Back exam: Present: normal inspection - Neurological Exam Neurological exam: Present: alert, oriented X3 - Psychiatric Psychiatric exam: Present: normal affect, normal mood - Skin Skin exam: Present: warm, intact Results - Labs CBC & BMP: 04/12/17 04:45 04/12/17 04:45
[2017-04-12] MEDS ORDERED: MAGNESIUM SULF RIDER 4 GM in PREMIX 1 EACH IV PRN (14:58)
[2017-04-12] MEDS: MAGNESIUM SULF RIDER 2 GM in PREMIX 1 EACH IV PRN ×2 (16:47→18:38)
[2017-04-12] MEDS: GABAPENTIN 100 MG CAPSULE PO SCH (20:18)
[2017-04-12] MEDS: SIMVASTATIN 20 MG TABLET PO SCH (20:18)
[2017-04-12] MEDS: DESITIN 4OZ/NYSTATIN 15 GRAM MIXTURE PASTE TOP SCH (21:31)
[2017-04-13] MEDS: SODIUM CHLOR 0.9% KCL 40 MEQ 40 MEQ/1,000 ML BAG IV SCH ×2 (01:17→15:10)
[2017-04-13] MEDS: MOXIFLOXACIN 0.5% OPH SOLN 3 ML BOTTLE RIGHT EYE SCH ×6 (03:06→22:04)
[2017-04-13 06:14] LABS: Basophils # 0.1 10*3/uL (0.0-0.2); Basophils % 0.3 % (0.0-0.8); Eosinophils # 0.1 10*3/uL (0.0-0.87); Eosinophils % 0.7 % (0.00-10.9); Hematocrit 26.6 VOL% (42.0-52.0); Hemoglobin 9.5 GM/DL (14.0-18.0); Immature Granulocytes % 3.4 %; Immature Granulocytes Absolute 0.55 #; Lymphocytes # 1.7 10*3/uL (1.4-4.0); Lymphocytes % 10.1 % (21.2-54.2); Mean Corpuscular HGB Conc 35.7 GM/DL (32-36); Mean Corpuscular Hemoglobin 32 PG (27-34); Mean Corpuscular Volume 89.6 FL (87-102); Mean Platelet Volume 11.6 FL (9.6-12.0); Monocytes # 2.5 10*3/uL (0.11-0.8); Monocytes % 15.3 % (1.7-12.7); Neutrophils # 11.5 10*3/uL (1.4-7.4); Neutrophils % 70.2 % (38.7-73.9); Platelet Count 144 T/CUMM (130-400); Red Blood Count 2.97 MC/CUMM (3.8-5.5); Red Cell Distribution Width 15.4 % (9.3-17.3); White Blood Count 16.4 T/CUMM (4-12)
[2017-04-13 06:55] LABS: Albumin 1.4 G/DL (3.4-5.0); Bilirubin,Indirect 2.8 MG/DL (0.0-1.0); Bilirubin,Total 9.8 MG/DL (0.2-1.0); Calcium 7.4 MG/DL (8.5-10.1); Osmolality,Calculated 270.1 MOS/KG (273-304); Potassium 4.5 MMOL/L (3.5-5.1); Total Protein 4.6 G/DL (6.4-8.3)
[2017-04-13] MEDS: INSULIN LISPRO 100 UNIT/ML SUBCUT SCH ×4 (07:39→20:10)
[2017-04-13 07:51] LABS: Band Neutrophils 2 % (0-10); Burr Cells 3+; Hypochromasia 1+; Lymphocytes 6 % (20-55); Platelet Estimate Adequate; Polychromasia Slight; Segmented Neutrophils 88 % (50-85); Target Cells 1+; Total Cells Counted 100
[2017-04-13] MEDS: GLIMEPIRIDE 2 MG TABLET PO SCH (08:17)
[2017-04-13] MEDS: ASPIRIN EC 81 MG TABLET PO SCH (08:17)
[2017-04-13] MEDS: PANTOPRAZOLE 40 MG TABLET PO SCH (08:17)
[2017-04-13] MEDS: LISINOPRIL 10 MG TABLET PO SCH (08:17)
[2017-04-13] MEDS: DESITIN 4OZ/NYSTATIN 15 GRAM MIXTURE PASTE TOP SCH ×2 (08:18→20:11)
[2017-04-13] MEDS: LEVOFLOXACIN INJ 500 MG in PREMIX 1 EACH IV SCH (10:00)
--- NOTE | 2017-04-13 10:11 | Hospitalist Progress Note ---
Assessment and Plan (1) Diabetes Status: Chronic Assessment and plan: SSI Current Visit: No (2) Duodenal ulcer Status: Acute Current Visit: No (3) Jaundice Status: Acute Current Visit: Yes (4) Total bilirubin, elevated Status: Acute Assessment and plan: Increased to 12 from 4 since admission GI assisting Liver biopsy 04/12/17 Current Visit: Yes (5) Jaundice due to hepatitis Problem details: ECRP negative - no obstruction Status: Acute Assessment and plan: ERCP with no obstruction Liver biopsy today Current Visit: Yes (6) Leukocytosis Status: Acute Assessment and plan: No overt signs of infection CT yesterday also without answer Will get UA Current Visit: Yes (7) Alcoholism Status: Acute Current Visit: Yes (8) Rash Status: Acute Assessment and plan: will try fluconazole Current Visit: Yes Hospitalist: Subjective Interval history: No acute events overnight. Patient denies abdominal pain. He does have a rash located lower abdomen and inguinal area. He denies any pain or itching associated with this. Exam - Constitutional Vitals: Period Temp Pulse Resp BP Sys/Robbins Pulse Ox Last 24 Hr 97.1 F-98.3 F 85-100 16-20 99-113/64-73 95-99 General appearance: over weight - Head Head exam: Present: normocephalic, atraumatic - Eye Eye exam: Present: EOMI Pupils: Present: RAMONA - ENT ENT exam: Present: normal exam - Neck Neck exam: Present: normal inspection - Respiratory Respiratory exam: Present: clear to auscultation bilaterally - Cardiovascular Cardiovascular exam: Present: regular rate and rhythm - GI/Abdominal GI/Abdominal exam: Present: normal bowel sounds, soft. Absent: tenderness, rebound - Extremities Exam Extremities exam: Present: normal inspection - Back Exam Back exam: Present: normal inspection - Neurological Exam Neurological exam: Present: alert, oriented X3 - Psychiatric Psychiatric exam: Present: normal affect, normal mood - Skin Skin exam: Present: warm, intact Results - Labs CBC & BMP: 04/13/17 05:32 04/13/17 05:32
[2017-04-13] MEDS: FLUCONAZOLE 100 MG TABLET PO SCH (10:30)
[2017-04-13 13:38] LABS: Apearance,Urine CLEAR (Clear); Bilirubin,Urine Small mg/dL (Negative); Blood, Urine Negative (Negative); Glucose,Urine (UA) 50 mg/dL (Negative); Hyaline Casts,Urine 9 /LPF (0-3); Ketones,Urine Negative (Negative); Mucus,Urine Occasional /LPF (Occasional); Nitrite,Urine Negative (Negative); Protein,Urine Negative; RBC,Urine <1 /HPF (0-4); Squamous Epithelial Cell,Urine Occasional /HPF (0-10); Urine Color Amber (Yellow); Urine Specific Gravity 1.024 (1.001-1.035); WBC,Urine 1 /HPF (0-6)
[2017-04-13] MEDS: GABAPENTIN 100 MG CAPSULE PO SCH (20:10)
[2017-04-13] MEDS: SIMVASTATIN 20 MG TABLET PO SCH (20:10)
[2017-04-14] MEDS: MOXIFLOXACIN 0.5% OPH SOLN 3 ML BOTTLE RIGHT EYE SCH ×8 (02:24→22:05)
[2017-04-14 07:19] LABS: Basophils % 0.2 % (0.0-0.8); Eosinophils # 0.1 10*3/uL (0.0-0.87); Eosinophils % 0.4 % (0.00-10.9); Hematocrit 26.7 VOL% (42.0-52.0); Hemoglobin 9.3 GM/DL (14.0-18.0); Immature Granulocytes % 3.7 %; Immature Granulocytes Absolute 0.71 #; Lymphocytes # 2.1 10*3/uL (1.4-4.0); Mean Corpuscular HGB Conc 34.8 GM/DL (32-36); Mean Corpuscular Hemoglobin 32 PG (27-34); Mean Corpuscular Volume 90.5 FL (87-102); Mean Platelet Volume 11.9 FL (9.6-12.0); Monocytes # 2.9 10*3/uL (0.11-0.8); Monocytes % 14.9 % (1.7-12.7); NRBC # 0.02 10*3/uL; Neutrophils # 13.4 10*3/uL (1.4-7.4); Neutrophils % 69.8 % (38.7-73.9); Platelet Count 132 T/CUMM (130-400); Red Blood Count 2.95 MC/CUMM (3.8-5.5); Red Cell Distribution Width 15.8 % (9.3-17.3); White Blood Count 19.1 T/CUMM (4-12)
[2017-04-14 07:42] LABS: Albumin 1.5 G/DL (3.4-5.0); Bilirubin,Direct 8.2 MG/DL (0.0-0.20); Bilirubin,Indirect 2.9 MG/DL (0.0-1.0); Bilirubin,Total 11.1 MG/DL (0.2-1.0); Calcium 7.6 MG/DL (8.5-10.1); Magnesium 1.8 MG/DL (1.8-2.4); Osmolality,Calculated 263.1 MOS/KG (273-304); Potassium 5.2 MMOL/L (3.5-5.1); Total Protein 4.8 G/DL (6.4-8.3)
[2017-04-14] MEDS: INSULIN LISPRO 100 UNIT/ML SUBCUT SCH ×4 (08:13→21:00)
[2017-04-14] MEDS: SODIUM CHLOR 0.9% KCL 40 MEQ 40 MEQ/1,000 ML BAG IV SCH (08:49)
[2017-04-14] MEDS: PANTOPRAZOLE 40 MG TABLET PO SCH (08:50)
[2017-04-14] MEDS: LISINOPRIL 10 MG TABLET PO SCH (08:50)
[2017-04-14] MEDS: FLUCONAZOLE 100 MG TABLET PO SCH (08:50)
[2017-04-14] MEDS: ASPIRIN EC 81 MG TABLET PO SCH (08:50)
[2017-04-14] MEDS: GLIMEPIRIDE 2 MG TABLET PO SCH (08:50)
[2017-04-14] MEDS: LEVOFLOXACIN INJ 500 MG in PREMIX 1 EACH IV SCH (08:54)
[2017-04-14] MEDS: DESITIN 4OZ/NYSTATIN 15 GRAM MIXTURE PASTE TOP SCH ×2 (08:54→21:00)
[2017-04-14 09:16] LABS: Band Neutrophils 4 % (0-10); Hypochromasia 2+; Lymphocytes 6 % (20-55); Microcytosis 1+; Polychromasia Slight; Segmented Neutrophils 79 % (50-85); Target Cells Slight; Total Cells Counted 100
[2017-04-14 09:17] LABS: Pappenheimer Bodies Few; Platelet Estimate Decreased
--- NOTE | 2017-04-14 16:04 | Hospitalist Progress Note ---
Assessment and Plan (1) Diabetes Status: Chronic Assessment and plan: SSI Current Visit: No (2) Duodenal ulcer Status: Acute Current Visit: No (3) Jaundice Status: Acute Current Visit: Yes (4) Total bilirubin, elevated Status: Acute Assessment and plan: Increased to 12 from 4 since admission Mostly direct bilirubin GI assisting Liver biopsy 04/12/17 Current Visit: Yes (5) Jaundice due to hepatitis Problem details: ECRP negative - no obstruction Status: Acute Assessment and plan: ERCP with no obstruction Liver biopsy Current Visit: Yes (6) Leukocytosis Status: Acute Assessment and plan: No overt signs of infection CT yesterday also without answer Will get UA Current Visit: Yes (7) Alcoholism Status: Acute Current Visit: Yes (8) Rash Status: Acute Assessment and plan: will try fluconazole Current Visit: Yes Hospitalist: Subjective Interval history: No acute events overnight. Patient denies abdominal pain. This morning patient "felt weird" was found to be hypoglycemic. He is eager for discharge Exam - Constitutional Vitals: Period Temp Pulse Resp BP Sys/Robbins Pulse Ox Last 24 Hr 97.3 F-98.4 F 19-93 16-20 90-119/50-72 94-98 General appearance: over weight - Head Head exam: Present: normocephalic, atraumatic - Eye Eye exam: Present: EOMI Pupils: Present: RAMONA - ENT ENT exam: Present: normal exam - Neck Neck exam: Present: normal inspection - Respiratory Respiratory exam: Present: clear to auscultation bilaterally. Absent: rhonchi, wheezes - Cardiovascular Cardiovascular exam: Present: regular rate and rhythm - GI/Abdominal GI/Abdominal exam: Present: normal bowel sounds, soft. Absent: tenderness, rebound - Extremities Exam Extremities exam: Present: normal inspection - Back Exam Back exam: Present: normal inspection - Neurological Exam Neurological exam: Present: alert, oriented X3 - Psychiatric Psychiatric exam: Present: normal affect, normal mood - Skin Skin exam: Present: warm, intact Results - Labs CBC & BMP: 04/14/17 05:01 04/14/17 05:01
[2017-04-14] MEDS: MAGNESIUM SULF RIDER 2 GM in PREMIX 1 EACH IV PRN (19:01)
[2017-04-14] MEDS: GABAPENTIN 100 MG CAPSULE PO SCH (20:59)
[2017-04-14] MEDS: SIMVASTATIN 20 MG TABLET PO SCH (21:00)
[2017-04-15] MEDS: SODIUM CHLOR 0.9% KCL 40 MEQ 40 MEQ/1,000 ML BAG IV SCH (01:49)
[2017-04-15] MEDS: MOXIFLOXACIN 0.5% OPH SOLN 3 ML BOTTLE RIGHT EYE SCH ×7 (01:50→22:35)
[2017-04-15 06:59] LABS: Basophils % 0.2 % (0.0-0.8); Eosinophils % 0.2 % (0.00-10.9); Hematocrit 24.9 VOL% (42.0-52.0); Hemoglobin 8.7 GM/DL (14.0-18.0); Immature Granulocytes % 2.5 %; Immature Granulocytes Absolute 0.43 #; Lymphocytes # 1.2 10*3/uL (1.4-4.0); Lymphocytes % 7.1 % (21.2-54.2); Mean Corpuscular HGB Conc 34.9 GM/DL (32-36); Mean Corpuscular Hemoglobin 32 PG (27-34); Mean Corpuscular Volume 90.2 FL (87-102); Monocytes % 11.9 % (1.7-12.7); Neutrophils # 13.3 10*3/uL (1.4-7.4); Neutrophils % 78.1 % (38.7-73.9); Platelet Count 123 T/CUMM (130-400); Red Blood Count 2.76 MC/CUMM (3.8-5.5); Red Cell Distribution Width 15.8 % (9.3-17.3); White Blood Count 17.1 T/CUMM (4-12)
[2017-04-15 07:28] LABS: Band Neutrophils 1 % (0-10); Burr Cells Slight; Eosinophils 1 % (0-10); Hypochromasia 1+; Lymphocytes 8 % (20-55); Ovalocytes Slight; Platelet Estimate Normal; Segmented Neutrophils 84 % (50-85); Target Cells Few; Total Cells Counted 100
[2017-04-15 07:29] LABS: Giant Platelets Few; Microcytosis 1+
[2017-04-15 07:36] LABS: Albumin 1.4 G/DL (3.4-5.0); Bilirubin,Direct 7.3 MG/DL (0.0-0.20); Bilirubin,Indirect 2.3 MG/DL (0.0-1.0); Bilirubin,Total 9.6 MG/DL (0.2-1.0); Calcium 7.5 MG/DL (8.5-10.1); Osmolality,Calculated 263.4 MOS/KG (273-304); Potassium 5.8 MMOL/L (3.5-5.1); Total Protein 4.6 G/DL (6.4-8.3)
[2017-04-15] MEDS: INSULIN LISPRO 100 UNIT/ML SUBCUT SCH ×4 (07:47→20:44)
[2017-04-15] MEDS: LEVOFLOXACIN INJ 500 MG in PREMIX 1 EACH IV SCH ×2 (08:04→08:58)
[2017-04-15] MEDS: PANTOPRAZOLE 40 MG TABLET PO SCH (08:04)
[2017-04-15] MEDS: LISINOPRIL 10 MG TABLET PO SCH (08:04)
[2017-04-15] MEDS: ASPIRIN EC 81 MG TABLET PO SCH (08:04)
[2017-04-15] MEDS: DESITIN 4OZ/NYSTATIN 15 GRAM MIXTURE PASTE TOP SCH ×2 (08:04→20:40)
[2017-04-15] MEDS: FLUCONAZOLE 100 MG TABLET PO SCH (08:04)
--- NOTE | 2017-04-15 08:55 | Gastrointestinal Progress Note ---
<Bianca Garcia - Last Filed: 04/15/17 08:52> Assessment and Plan (1) Jaundice Status: Acute Assessment and plan: 04/15-elevated bilirubin remains at 9.6 today. Liver biopsy is pending. Plan an addendum to follow Dr. Garcia. 04/12-ERCP results noted. Patient for liver biopsy later today. Elevation in bilirubin 4.5-11.5 today. Afebrile WBCs noted 17,000. Plan an addendum to follow Dr. Garcia. 04/10-ERCP rescheduled to tomorrow due to elevated INR. H&H noted to be down today. Transfuse 2 units of packed red blood cells. Give vitamin K 5 mg subcu and repeat lab work in the morning. Plan an addendum to follow Dr. Garcia 04/09-Onset of jaundice, unknown when, with findings of elevated LFTS, bilirubin at PCP appt. Hx of pancreatic psuedocyst, spleenectomy. 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 CT of abdomen w/o contrast findings noted as below. Obtain abdominal US today. Plan and addendum to follow by Dr Garcia. Current Visit: Yes Gastroenterology - PN: Subj Interval history: CC: Jaundice Patient is seen, awake and alert up and around the room. States that he is feeling about the same but does complain mostly of weakness. He denies any abdominal pain, nausea or vomiting. States that he is tolerating his diet well at this time. Abdomen soft, nontender. Bilirubin noted to fluctuate between 9- 11 throughout the weekend. Currently at 9.6. AJAY is negative. Continues with leukocytosis at 17,000 however afebrile. He is receiving Levaquin IV. He had some stomach cramping and diarrhea over the weekend with negative C. difficile noted. States this is improved at this time. Abdomen is soft, nontender. Pathology report from liver biopsy is still pending this morning. ROS: Denies shortness of breath or chest pain Exam (Progress Note) - Constitutional Vitals: Period Temp Pulse Resp BP Sys/Robbins Pulse Ox Last 24 Hr 97.5 F-98.4 F 73-90 18-21 99-127/65-82 92-98 General appearance: normal weight, no acute distress - Head Head exam: Present: normal inspection, normocephalic - Eye Eye exam: Present: scleral icterus, other (Lids and conjunctive are unremarkable ) - ENT ENT exam: Present: normal exam, normal oropharynx - Neck Neck exam: Present: normal inspection - Respiratory Respiratory exam: Present: clear to auscultation bilaterally. Absent: rales, rhonchi, wheezes - Cardiovascular Cardiovascular exam: Present: regular rate and rhythm. Absent: diastolic murmur , JVD, systolic murmur - GI/Abdominal GI/Abdominal exam: Present: normal bowel sounds, soft. Absent: ascites, distended, mass, organomegaly, tenderness - Extremities Exam Extremities exam: Present: normal inspection, full ROM - Back Exam Back exam: Present: normal inspection - Neurological Exam Neurological exam: Present: alert, oriented X3 - Psychiatric Psychiatric exam: Present: normal affect, normal mood - Skin Skin exam: Present: normal color, warm, dry Results - Labs CBC & BMP: 04/15/17 06:25 04/15/17 06:25 Lab Results: I have reviewed the past 24 hour labs <Karlos Garcia - Last Filed: 04/15/17 17:30> Exam (Progress Note) - Constitutional Vitals: Period Temp Pulse Resp BP Sys/Robbins Pulse Ox Last 24 Hr 97.0 F-98.1 F 72-81 18-21 99-127/65-82 92-100 Results - Labs CBC & BMP: 04/15/17 06:25 04/15/17 06:25
--- NOTE | 2017-04-15 11:30 | Ultrasound Report ---
Venous Doppler ultrasound bilateral lower extremity Indication: Swelling and pain Comparison: None available Findings: No evidence of echogenic, noncompressible thrombus seen in the visualized veins of the extremities. Color Doppler venous waveform pattern is within normal limits. Impression: No evidence of deep venous thrombosis. Ultrasound images stored and captured. PROCEDURE INTERPRETED AT [facility] DEPARTMENT OF RADIOLOGY Final Report Signed by: Dr. Jose Alberto Hernandez
--- NOTE | 2017-04-15 16:56 | Hospitalist Progress Note ---
Assessment and Plan (1) Diabetes Status: Chronic Assessment and plan: SSI Current Visit: No (2) Duodenal ulcer Status: Acute Current Visit: No (3) Jaundice Status: Acute Current Visit: Yes (4) Total bilirubin, elevated Status: Acute Assessment and plan: Increased to 12 from 4 since admission, now averages 9-11 Mostly direct bilirubin GI assisting Liver biopsy 04/12/17 Current Visit: Yes (5) Jaundice due to hepatitis Problem details: ECRP negative - no obstruction Status: Acute Assessment and plan: ERCP with no obstruction Liver biopsy Current Visit: Yes (6) Leukocytosis Status: Acute Assessment and plan: No overt signs of infection CT yesterday also without answer UA without infection Blood culture with no growth after one day Afebrile since admit Current Visit: Yes (7) Alcoholism Status: Acute Current Visit: Yes (8) Rash Status: Acute Assessment and plan: will try fluconazole Current Visit: Yes Hospitalist: Subjective Interval history: No acute events overnight. He reports hypoglycemia overnight, not charted in our system. Possible discharge soon, with close primary care follow-up. Potassium is elevated due to IV fluids with K. Exam - Constitutional Vitals: Period Temp Pulse Resp BP Sys/Robbins Pulse Ox Last 24 Hr 97.0 F-98.1 F 73-81 18-21 99-127/65-82 92-100 General appearance: over weight - Head Head exam: Present: normocephalic, atraumatic - Eye Eye exam: Present: EOMI Pupils: Present: RAMONA - ENT ENT exam: Present: normal exam - Neck Neck exam: Present: normal inspection - Respiratory Respiratory exam: Present: clear to auscultation bilaterally. Absent: wheezes - Cardiovascular Cardiovascular exam: Present: regular rate and rhythm - GI/Abdominal GI/Abdominal exam: Present: normal bowel sounds, soft. Absent: tenderness, rebound - Extremities Exam Extremities exam: Present: normal inspection - Back Exam Back exam: Present: normal inspection - Neurological Exam Neurological exam: Present: alert, oriented X3 - Psychiatric Psychiatric exam: Present: normal affect, normal mood - Skin Skin exam: Present: warm, intact Results - Labs CBC & BMP: 04/15/17 06:25 04/15/17 06:25
[2017-04-15] MEDS: SIMVASTATIN 20 MG TABLET PO SCH (20:41)
[2017-04-15] MEDS: GABAPENTIN 100 MG CAPSULE PO SCH (20:41)
[2017-04-16] MEDS: MOXIFLOXACIN 0.5% OPH SOLN 3 ML BOTTLE RIGHT EYE SCH ×3 (03:28→09:30)
[2017-04-16 05:13] LABS: Basophils % 0.3 % (0.0-0.8); Eosinophils # 0.1 10*3/uL (0.0-0.87); Eosinophils % 0.7 % (0.00-10.9); Hematocrit 24.7 VOL% (42.0-52.0); Hemoglobin 8.8 GM/DL (14.0-18.0); Immature Granulocytes % 2.3 %; Immature Granulocytes Absolute 0.35 #; Lymphocytes # 1.8 10*3/uL (1.4-4.0); Mean Corpuscular HGB Conc 35.6 GM/DL (32-36); Mean Corpuscular Hemoglobin 32 PG (27-34); Mean Corpuscular Volume 89.5 FL (87-102); Mean Platelet Volume 12.4 FL (9.6-12.0); Monocytes # 1.6 10*3/uL (0.11-0.8); Monocytes % 10.5 % (1.7-12.7); Neutrophils # 11.4 10*3/uL (1.4-7.4); Neutrophils % 74.2 % (38.7-73.9); Platelet Count 117 T/CUMM (130-400); Red Blood Count 2.76 MC/CUMM (3.8-5.5); Red Cell Distribution Width 15.9 % (9.3-17.3); White Blood Count 15.3 T/CUMM (4-12)
[2017-04-16 05:35] LABS: Hypochromasia 1+
[2017-04-16 05:36] LABS: Burr Cells Slight; Giant Platelets Few; Microcytosis 1+; Platelet Estimate Normal
[2017-04-16 05:59] LABS: Osmolality,Calculated 264.2 MOS/KG (273-304); Potassium 5.3 MMOL/L (3.5-5.1)
[2017-04-16] MEDS: INSULIN LISPRO 100 UNIT/ML SUBCUT SCH ×2 (07:46→10:39)
[2017-04-16 07:50] VITALS: BP 111/71
[2017-04-16] MEDS: LISINOPRIL 10 MG TABLET PO SCH (08:05)
[2017-04-16] MEDS: FLUCONAZOLE 100 MG TABLET PO SCH (08:06)
[2017-04-16] MEDS: LEVOFLOXACIN INJ 500 MG in PREMIX 1 EACH IV SCH ×2 (08:06→08:38)
[2017-04-16] MEDS: ASPIRIN EC 81 MG TABLET PO SCH (08:06)
[2017-04-16] MEDS: DESITIN 4OZ/NYSTATIN 15 GRAM MIXTURE PASTE TOP SCH (08:06)
[2017-04-16] MEDS: PANTOPRAZOLE 40 MG TABLET PO SCH (08:06)
--- NOTE | 2017-04-16 08:26 | Discharge Summary ---
<Kelsey Hanna - Last Filed: 04/16/17 08:28> Hospital Course - Hospital Course Hospital Course: This is a 56-year-old male that presented to the ED at [facility] on April 08, 2017 as a transfer from the [facility] for further evaluation of hypotension, jaundice, cholecystitis. The patient has a medical history significant for alcohol addiction, hypertension, non- insulin-dependent diabetes mellitus, and remote nicotine abuse. Patient has a surgical history significant for splenectomy, pancreatic pseudocyst removal, colonoscopy, EGD, back surgery and right shoulder surgery. Apparently, the patient was being seen at the diabetes center at the [facility] for his regular checkup. He was assessed by the staff at the diabetes center and found to be hypotensive with a blood pressure noted at 89/15. He was immediately transferred to the emergency department at the [facility] for further evaluation. Fluid resuscitation was initiated immediately. CT abdomen and pelvis was performed which reported diffuse colonic thickening and mild. Cholecystic edema suspicious for acute cholecystitis, diffuse hepatic steatosis, trace ascites, and acute colitis. Ultrasound of the right upper quadrant reported fatty liver disease, thickening gallbladder wall but no stones were seen, sludging was noted however no CBD dilation was detected, and no evidence of Garcia sign was noted. The emergency department at [facility] was contacted regarding transfer for a higher level of care. The patient was subsequently transferred to [facility] for continuation of care. The patient was assessed at the time of ED presentation. The patient's blood pressure was noted to be at 94/54. Labs were obtained which reported white blood cell count at 18.3, hemoglobin 9.3, hematocrit 24.6, platelet count 130. The patient's hepatic function was less than favorable; total bilirubin was noted at 5.90, AST 60, ALT 32, alkaline phosphatase at 127. The patient was subsequently admitted to the hospitalist service for continuation of care. A gastroenterology consultation was requested to assist and evaluate during the clinical encounter. The patient was seen and evaluated by gastroenterology. On April 11, 2017, which reported a normal ERCP with no evidence of obstructive process to cause this jaundice. It was suggested that the jaundice represented ongoing hepatocellular injury from alcoholic hepatitis. Gastroenterology recommended a liver biopsy for further evaluation. The patient was evaluated by surgery; however he was deemed inappropriate for any surgical intervention at that time. On April 12, 2017 the patient underwent ultrasound-guided liver biopsy which reported apparent interval increase in gallbladder distention/wall thickening with sludge noted. He is showing signs of chronic liver disease. Patient's bilirubin ranged from 9-11, his platelets are low and pt is elevated. His blood pressure also runs low as a result of his liver disease. The only true treatment is cessation of alcohol, which he does not seem interested in at this time. His prognosis without cessation is poor. The patient's condition slowly improved. The patient has not experienced any significant overnight events. The patient's vital signs are stable. Patient is ambulating without difficulty. Today, we feel that he is indeed appropriate for discharge home to follow-up with his primary care physician at the [facility]. We have spoken with patient in great detail regarding the need to refrain from alcohol use. We discussed in great detail regarding the patient 's current hepatic function and complications associated with continuation of alcohol consumption. Specialty Discharge - Follow Up or Referrals Follow up with: [facility] [Provider Group] (See your PCP at the [facility] on or 04/22) Discharge Plan - Discharge Data Disposition: Disch To Home/Self Care - Discharge Medications New Fluconazole Tab [Diflucan Tab] 100 mg PO DAILY #3 tablet Continue Lisinopril [Prinivil] 10 mg PO DAILY Gabapentin Cap/Tab [Neurontin Cap/Tab] 200 mg PO BEDTIME Aspirin EC Tab 81 mg PO DAILY Glimepiride 2 mg PO DAILY Metformin HCl [Metformin HCl ER] 500 mg PO BID Calcium (Carbonate) [Caltrate 600] 600 mg PO BID - Follow Up or Referral Follow Up: [facility] [Provider Group] (See your PCP at the [facility] on or 04/22) - Forms/Instructions Instructions: Cirrhosis (DC), Abuse of Alcohol (DC), Jaundice (DC) Exam - Constitutional Vitals: Period Temp Pulse Resp BP Sys/Robbins Pulse Ox Last 24 Hr 97.2 F-98.7 F 71-90 16-20 98-111/53-75 91-100 Discharge Results Procedures and tests throughout hospitalization: Pending Orders 04/10/17 14:15 Occult Blood, Stool Routine 04/14/17 16:12 Blood Culture Routine Labs on day of discharge: Labs from last 24 hours 04/16/17 04/16/17 04/16/17 07:07 04:33 04:33 WBC 15.3 H RBC 2.76 L Hgb 8.8 L Hct 24.7 L MCV 89.5 MCH 32 MCHC 35.6 RDW 15.9 Plt Count 117 L MPV 12.4 H Neut % (Auto) 74.2 H Lymph % (Auto) 12.0 L [place] % (Auto) 10.5 Eos % (Auto) 0.7 Baso % (Auto) 0.3 Neut # (Auto) 11.4 H Lymph # (Auto) 1.8 [place] # (Auto) 1.6 H Eos # (Auto) 0.1 Baso # (Auto) 0.0 Immature Gran % 2.3 Nucleated RBC % 0.0 Immature Gran # 0.35 Nucleated RBCs # 0.00 Platelet Estimate Normal Giant Platelets Few Hypochromasia 1+ Microcytosis 1+ [place] Cells Slight Sodium 134 L Potassium 5.3 H Chloride 106 Carbon Dioxide 21 Anion Gap 12.3 BUN 10 Creatinine 1.60 H GFR Calculation 57 BUN/Creatinine Ratio 6.00 Glucose 60 L POC Glucose 84 Calculated Osmolality 264.2 L Calcium 8.0 L Magnesium 2.0 04/15/17 04/15/17 04/15/17 18:55 16:54 11:32 WBC RBC Hgb Hct MCV MCH MCHC RDW Plt Count MPV Neut % (Auto) Lymph % (Auto) [place] % (Auto) Eos % (Auto) Baso % (Auto) Neut # (Auto) Lymph # (Auto) [place] # (Auto) Eos # (Auto) Baso # (Auto) Immature Gran % Nucleated RBC % Immature Gran # Nucleated RBCs # Platelet Estimate Giant Platelets Hypochromasia Microcytosis [place] Cells Sodium Potassium Chloride Carbon Dioxide Anion Gap BUN Creatinine GFR Calculation BUN/Creatinine Ratio Glucose POC Glucose 163 H 137 H 103 Calculated Osmolality Calcium Magnesium Preliminary micro results at discharge 04/14/17 16:12 Blood Culture - Preliminary Blood No growth at 1 day 04/14/17 16:12 Blood Culture - Preliminary Blood No growth at 1 day DS: Provider Date of admission: 04/08/17 15:19 Primary care physician: Venessa Carrasco MD Attending physician on admission: Riza Roman MD Consults: 04/08/17 17:59 Consult to Physician [CONS] Routine Comment: Pt known to you; Possible ERCP candidate Consulting Provider: Karlos Garcia Person Notified: NOEMI Bunyard Date Notified: 04/09/17 Time Notified: 08:09 04/08/17 18:00 Consult to Dietitian [CONS] Routine Reason for Dietitian: Other 04/09/17 09:09 Consult to Physician [CONS] Routine Comment: Cholecystisis Consulting Provider: Kwaku Tavares Consult to Specialist Group: Surgery Person Notified: JEY Date Notified: 04/09/17 Time Notified: 09:59 04/15/17 13:34 PT [Consult to Physical Therapy] [CONS] Routine Reason for Physical Therapy: Evaluate and Treat Discharging clinician: Kelsey Hanna CNP <Dino Sprague - Last Filed: 04/16/17 10:11> Hospital Course - Time spent with patient Time with patient DS: Greater than 30 minutes (40) Diagnosis - Discharge Diagnosis (1) Diabetes Status: Chronic (2) Duodenal ulcer Status: Acute (3) Jaundice Status: Chronic (4) Total bilirubin, elevated Status: Chronic (5) Jaundice due to hepatitis Status: Chronic (6) Leukocytosis Status: Chronic (7) Alcoholism Status: Chronic (8) Rash Status: Acute Discharge Plan - Discharge Data Condition at Discharge: Stable Discharge Diet: low salt diet Activity: increase activity as tolerated Hygiene: no restrictions Weight Bearing at Discharge: weight bear as tolerated Exam - Constitutional General appearance: over weight - Head Head exam: Present: normocephalic, atraumatic - Eye Eye exam: Present: EOMI Pupils: Present: RAMONA - ENT ENT exam: Present: normal exam - Neck Neck exam: Present: normal inspection. Absent: thyromegaly - Respiratory Respiratory exam: Present: clear to auscultation bilaterally - Cardiovascular Cardiovascular exam: Present: regular rate and rhythm - GI/Abdominal GI/Abdominal exam: Present: normal bowel sounds, soft. Absent: tenderness, rebound - Extremities Exam Extremities exam: Present: normal inspection - Back Exam Back exam: Present: normal inspection - Neurological Exam Neurological exam: Present: alert, oriented X3 - Psychiatric Psychiatric exam: Present: normal affect, normal mood - Skin Skin exam: Present: warm, intact
--- NOTE | 2017-04-16 12:01 | Gastrointestinal Progress Note ---
<Bianca Garcia - Last Filed: 04/16/17 11:59> Assessment and Plan (1) Jaundice Status: Chronic Assessment and plan: 04/16-No repeat LFTs. Pt for discharge home today. No followup appt needed for Dr Garcia at this time. Plan and addendum to follow by Dr Garcia. 04/15-elevated bilirubin remains at 9.6 today. Liver biopsy is pending. Plan an addendum to follow Dr. Garcia. 04/12-ERCP results noted. Patient for liver biopsy later today. Elevation in bilirubin 4.5-11.5 today. Afebrile WBCs noted 17,000. Plan an addendum to follow Dr. Garcia. 04/10-ERCP rescheduled to tomorrow due to elevated INR. H&H noted to be down today. Transfuse 2 units of packed red blood cells. Give vitamin K 5 mg subcu and repeat lab work in the morning. Plan an addendum to follow Dr. Garcia 04/09-Onset of jaundice, unknown when, with findings of elevated LFTS, bilirubin at PCP appt. Hx of pancreatic psuedocyst, spleenectomy. 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 CT of abdomen w/o contrast findings noted as below. Obtain abdominal US today. Plan and addendum to follow by Dr Garcia. Gastroenterology - PN: Subj Interval history: CC: Cirrhosis Pt is seen, awake and alert, ambulating around room. States he is feeling better today. He is tolerating his diet well. Denies any abdominal pain, nausea or vomiting. No repeat LFTS today. Abdomen is soft, nontender. Pt is being discharged home today. Discussed with pt the importance of alcohol cessation. Pt verbalizes understanding. ROS: Denies SOB or chest pain Exam (Progress Note) - Constitutional Vitals: Period Temp Pulse Resp BP Sys/Robbins Pulse Ox Last 24 Hr 97.2 F-98.7 F 71-90 16-20 98-111/53-71 91-99 General appearance: normal weight, no acute distress - Head Head exam: Present: normal inspection, normocephalic - Eye Eye exam: Present: other (lids and conjunctiva unremarkable). Absent: scleral icterus - ENT ENT exam: Present: normal exam, normal oropharynx - Neck Neck exam: Present: normal inspection - Respiratory Respiratory exam: Present: clear to auscultation bilaterally. Absent: rales, rhonchi, wheezes - Cardiovascular Cardiovascular exam: Present: regular rate and rhythm. Absent: diastolic murmur , JVD, systolic murmur - GI/Abdominal GI/Abdominal exam: Present: normal bowel sounds, soft. Absent: ascites, distended, mass, organomegaly, tenderness - Extremities Exam Extremities exam: Present: normal inspection, full ROM - Back Exam Back exam: Present: normal inspection - Neurological Exam Neurological exam: Present: alert, oriented X3 - Psychiatric Psychiatric exam: Present: normal affect, normal mood - Skin Skin exam: Present: normal color, warm, dry Results - Labs CBC & BMP: 04/16/17 04:33 04/16/17 04:33 Lab Results: I have reviewed the past 24 hour labs Specialty Discharge - Follow Up or Referrals Follow up with: [facility] [Provider Group] - 04/19/17 11:00 am (See your PCP at the health Center on 04/19 or 04/22. BE SURE TO KEEP THIS APPT.) <Karlos Garcia - Last Filed: 04/16/17 18:12> Exam (Progress Note) - Constitutional Vitals: Period Temp Pulse Resp BP Sys/Robbins Pulse Ox Last 24 Hr 97.2 F-98.7 F 71-90 16-20 98-111/53-71 91-98 Results - Labs CBC & BMP: 04/16/17 04:33 04/16/17 04:33
--- NOTE | 2017-04-16 14:18 | Pathology Report from [facility] ---
[facility] ACCESSION # : [id number] PATIENT NAME : Joselyn Abdi ORDERING DR : Lucas Aranda MD CLINICAL HX: Elevated bilirubin, normal ERCP - Long history of alcohol abuse POST-OP DX: Same SPECIMEN INFO: Liver Mitul cut BX x 3, U/S liver biopsy GROSS DESCRIPTION: Received in formalin labeled JOSELYN ABDI & LIVER BX are three pale yellow jason shaped tissue fragments measuring 1.5 x 0.1 cm each, submitted in one cassette. DIAGNOSIS FOR JOSELYN ABDI: LIVER BIOPSY: Steatohepatitis, with marked fibrosis , consistent with clinical history. COLLECTED DATE: 04/12/2017 [facility] REPORT DATE: 04/15/2017 ELECTRONICALLY SIGNED BY: Lissette Cortez III, M.D. 04/15/2017 - 10:34:46 [facility]
--- NOTE | 2017-04-22 14:27 | Emergency Department Note ---
Isaac Hamilton Manpreet, am scribing for, and in the presence of, Yuan Patel MD 13:15. Jorge Hamilton Phillip K, MD, personally performed the services described in this documentation, ascribed by Sylvain Gray in my presence, and it is both accurate and complete 427 . Arrival - Arrival Chief Complaint: Blood Pressure Stated Complaint: hypotension; cystitis ED Nursing Triage Note: Patient is a transfer from [facility]. Complains of hypotension, jaundice, and cholycyctitis. Patient has chronic renal failure. Mode of Arrival: Stretcher Limitations: No Limitations Source: Patient - History of Present Illness HPI Narrative: Pt is a 56 y/o male who was transferred from [facility] for CC of being hypotensive, jaundice and cholcystitis. Pt states he was going to the Diabetic clinic for a regular check-up from where he was taken to the [place] ER for being hypotensive with BP of 89/15. Pt was also told of being jaundiced and had a CT which showed the cholcystitis. Pt states he does not have any pains, but c/ o being dizziness intermittently for the past 2 weeks. Pt reports of slowing his EtOH intake for the past 3 months and his last drink was last week. No other pains/complaints reported to ED. Onset (ago): hour(s) Consistency: constant Severity: moderate Severity scale (1-10): 3 Allergies/Adverse Reactions: Allergies Allergy/AdvReac Type Severity Reaction Status Date / Time cefoperazone Allergy RASH Verified 09/13/15 10:48 Home Medications: Home Medications Medication Instructions Recorded Confirmed Type Aspirin EC Tab 81 mg PO DAILY 09/13/15 04/08/17 History Gabapentin Cap/Tab [Neurontin 200 mg PO BEDTIME 09/13/15 04/08/17 History Cap/Tab] Lisinopril [Prinivil] 10 mg PO DAILY 09/13/15 04/08/17 History Glimepiride 2 mg PO DAILY 07/23/16 04/08/17 History Metformin HCl [Metformin HCl ER] 500 mg PO BID 07/23/16 04/08/17 History Calcium (Carbonate) [Caltrate 600] 600 mg PO BID 04/08/17 04/08/17 History Fluconazole Tab [Diflucan Tab] 100 mg PO DAILY #3 tablet 04/16/17 Rx Review of System - Review of System 12 point system: reviewed and no additional remarkable complaints except as stated - Review of System Constitutional: Absent: chills, diaphoresis, fever Head/Ears/Nose/Throat: Absent: sore throat Respiratory: Absent: cough, respiratory distress Cardiovascular: Absent: chest pain Gastrointestinal: Present: nausea. Absent: abdominal pain, vomiting Musculoskeletal: Absent: arm pain, back pain Neurological: Present: other (Dizziness). Absent: headache Medical,Surgical,& Family Hx - Medical History Cardio: History of: Hypertension (medication) Neurology: No history of: Seizures HEENT: History of: Ear Problem (glasses) Endocrine: History of: Diabetes Mellitus (NIDDM) Musculoskeletal: History of: Back/Neck Problems (had back surgery) Hematology: History of: Blood Transfusion Reaction (3 months ago) Other: No history of: Anesthesia Reactions - Surgical History Cardiac Surgeries: Patient Denies: Cardiac Catheterization Abdominal Surgeries: Surgical HX of: Abdominal Surgery (spleenectomy, pancreatic pseudocyst), Colonoscopy, EGD Orthopedic Surgeries: Surgical HX of;: Orthopedic Surgery (back surgery, right shoulder) - Family History Family History: Reports;: Family Cancer (colon (mother)) - Social History Smoking Status: Former smoker Exam Vital Signs: Vital Signs Temperature 97.2 F L 04/16/17 07:46 Pulse Rate 90 04/16/17 07:46 Respiratory Rate 18 04/16/17 10:00 Blood Pressure 111/71 04/16/17 07:46 O2 Sat by Pulse Oximetry 96 04/16/17 07:46 - General General appearance: alert, in no apparent distress - Head Head exam: Present: atraumatic, normocephalic, normal inspection - Eye Eye exam: Present: PERRL, EOMI, scleral icterus. Absent: normal appearance - ENT ENT exam: Present: normal exam, normal oropharynx, mucous membranes moist, TM's normal bilaterally - Neck Neck exam: Present: normal inspection, full ROM, trachea midline. Absent: tenderness, thyromegaly - Chest Chest inspection: Present: normal inspection, symmetric chest wall rise. Absent : tenderness - Respiratory Respiratory exam: Present: normal lung sounds bilaterally. Absent: accessory muscle use, respiratory distress - Cardiovascular Cardiovascular exam: Present: regular rate, normal rhythm, normal heart sounds - Abdominal Exam Abdominal exam: Present: soft, normal bowel sounds. Absent: distention, tenderness, guarding, diminished bowel sounds - Extremities Exam Extremities exam: Present: normal inspection, full ROM. Absent: tenderness - Back Exam Back exam: Present: normal inspection, full ROM. Absent: tenderness - Neurological Exam Neurological exam: Present: alert, oriented X3, CN II-XII intact, reflexes normal - Psychiatric Psychiatric exam: Present: normal affect, normal mood - Skin Skin exam: Present: warm, dry, intact. Absent: normal color (Juandice) Results - Labs CBC & BMP: 04/16/17 04:33 04/16/17 04:33 Lab Results: I have reviewed the patients labs Labs: Laboratory Tests 04/08/17 15:10 WBC 18.3 H RBC 2.85 L Hgb 9.3 L Hct 24.6 L MCV 86.3 L MCHC 37.8 H Neut % (Auto) 74.9 H Lymph % (Auto) 11.9 L Neut # (Auto) 13.7 H [place] # (Auto) 2.0 H - Diagnostic Findings Procedure: CT Abdomen and Pelvis: report reviewed by me (CT Report from [facility]: "CT w/o Con: 1. Diffuse gallbladder wall thickening and mild pericholecytic edema, suspicious for acute cholecystitis. Recommend further evaluation with gallbladder ultrasound. 2. Diffuse hepatic steatosis. 3. Trace ascites. 4. Acute colitis.") Disposition Clinical Impression: Acute cholecystitis, Ascites, Alcoholic liver disease, Anemia Case discussed with: patient Disposition: Still a Patient Condition: Guarded New Prescriptions: Rx's Medication Instructions Recorded Fluconazole Tab [Diflucan Tab] 100 mg PO DAILY #3 tablet 04/16/17
== END 2017-04-16 11:28 | disposition home or self-care (01) | DRG 433 ==
LOC: EDUNIT# → EDBD → N.ED 12:40 → N.EDINP 15:19 → SUATTDRO 15:19 → N.5E 15:36
PROVIDERS: ADMIT Internal Medicine Infectious Disease; ATTEND Internal Medicine